=== PATIENT | female | born 1990 | race Caucasian/White ===

== ENCOUNTER → 2021-10-27 | Outpatient (CLI) | payer BC ==
--- NOTE | 2021-10-27 10:31 | CA ---
Transthoracic Echo Report Name: Mikhail August Age: 31 Gender: F : 1990 Exam Date: 10/27/2021 08:31 Exam Location: [facility] Ht (in): 69 Wt (lb): 190 Ordering Physician: Maksim Marie DO Attending/Referring Phys: Flower Ramsey [facility] Director Mara Sanchez RDCS Procedure CPT: Indications: R06.09 Dyspnea I49.3 Cardiac Hx: Technical Quality: Contrast 1: Total Dose (mL): Contrast 2: Total Dose (mL): MEASUREMENTS (Male / Female) Normal Values 2D ECHO LV Diastolic Diameter PLAX 4.1 cm 4.2 - 5.9 / 3.9 - 5.3 cm LV Systolic Diameter PLAX 2.1 cm IVS Diastolic Thickness 1.0 cm 0.6 - 1.0 / 0.6 - 0.9 cm LVPW Diastolic Thickness 1.2 cm 0.6 - 1.0 / 0.6 - 0.9 cm LV Relative Wall Thickness 0.6 RV Internal Dim ED PLAX 3.0 cm LA Volume 54.1 cm??? 18 - 58 / 22 - 52 cm??? M-MODE Aortic Root Diameter MM 2.3 cm LA Systolic Diameter MM 4.2 cm LA Ao Ratio MM 1.8 AV Cusp Separation MM 2.1 cm DOPPLER AV Peak Velocity 168.3 cm/s AV Peak Gradient 11.3 mmHg MV Area PHT 4.7 cm??? Mitral E Point Velocity 97.2 cm/s Mitral A Point Velocity 64.8 cm/s Mitral E to A Ratio 1.5 MV Deceleration Time 160.3 ms TR Peak Velocity 242.1 cm/s TR Peak Gradient 23.4 mmHg Right Ventricular Systolic Press 28.4 mmHg FINDINGS Left Ventricle Borderline Left ventricular wall thickness. Normal left ventricular diastolic filling pattern. Left ventricular cavity size normal. Normal left ventricular systolic function with no obvious regional wall motion abnormalities. Left ventricular ejection fraction is estimated at 55-60 %. Right Ventricle Normal right ventricular size and function. Right ventricular systolic pressure within normal limits. Right Atrium Normal right atrial size. Left Atrium Mildly increased left atrial volume. No evidence for an atrial septal defect. Mitral Valve Structurally normal mitral valve. No mitral stenosis. Mild mitral regurgitation. Aortic Valve Trileaflet aortic valve. No aortic valve stenosis or regurgitation. Tricuspid Valve Structurally normal tricuspid valve. No tricuspid stenosis. Mild tricuspid regurgitation. Pulmonic Valve Structurally normal pulmonic valve. Trace pulmonic regurgitation. Pericardium No pericardial effusion. Aorta Normal size aortic root and proximal ascending aorta. CONCLUSIONS #1. Normal ventricular left ankle size and function with borderline hypertrophy. #2. Mildly increased left atrial size. #3. Normal valvular excursion and function Previewed by: Dr. Angel Penn MD (Electronically Signed) Final Date: 27 October 2021 10:30
== END | disposition home or self-care (01) ==
LOC: RADECHMAIN 08:18
PROVIDERS: ATTEND Family Medicine
DX: I08.8 Other rheumatic multiple valve diseases (principal)
CPT/HCPCS: 93306

== ENCOUNTER → 2021-10-28 | Outpatient (CLI) | payer BC ==
--- NOTE | 2021-11-15 10:03 | HM ---
Holter monitor shows sinus mechanism with intermittent PVCs, of one single morphology No nonsustained ventricular tachycardia Sinus tachycardia when patient was on the treadmill At that time, no PVCs documented MTDD
== END | disposition home or self-care (01) ==
LOC: RADECHMAIN 07:22
PROVIDERS: ATTEND Family Medicine
DX: I47.2 Ventricular tachycardia (principal)
CPT/HCPCS: 93225; 93226

== ENCOUNTER → 2022-01-17 | Outpatient (CLI) | payer BC ==
--- NOTE | 2022-01-17 15:41 | US ---
EXAMINATION TYPE: US thyroid st tissue head/neck DATE OF EXAM: 01/17/2022 COMPARISON: NONE CLINICAL HISTORY: R59.0 ENLARGED LYMPH NODES. Cervical lymphadenopathy. Scanned bilateral neck. -Hypoechoic area with hyperechoic center seen within the right neck: 3.0 x 2.2 x 0.9 cm. -Hypoechoic area seen right neck within the jaw area: 0.7 x 0.6 x 0.5 cm. ??Possibly within submandib ular gland. Hypoechoic area with hyperechoic center seen within the left neck: 1.6 x 0.9 x 0.3 cm. IMPRESSION: 1. Bilateral neck lymphadenopathy. Question a small 7 mm right submandibular gland nodule. Recommend follow-up CT scan of the soft tissue neck
== END | disposition home or self-care (01) ==
LOC: RADECHMAIN 12:01
PROVIDERS: ATTEND Family Medicine
DX: R59.0 Localized enlarged lymph nodes (principal); R00.2 Palpitations
CPT/HCPCS: 76536; 93270

== ENCOUNTER 2022-02-17 09:09 | Emergency (ER) | payer BC ==
[2022-02-17 09:30] VITALS: RESP 16
[2022-02-17] MEDS ORDERED: SODIUM CHLORIDE 0.9% 1,000 ML IV STA (09:35)
--- NOTE | 2022-02-17 09:40 | ED ---
Nausea/Vomiting/Diarrhea HPI - General Chief complaint: Nausea/Vomiting/Diarrhea Stated complaint: Abd pain Time Seen by Provider: 02/17/22 09:21 Source: patient, RN notes reviewed, old records reviewed Mode of arrival: ambulatory Limitations: no limitations - History of Present Illness Initial comments: 32-year-old female presents to the emergency room with complaints of diarrhea for the past 2 days. She describes it as yellow and watery in color. She has lost her appetite, denies any nausea or vomiting. She states her doctor did tell her she had elevated liver enzymes and she has been changing her diet. She has not had her labs rechecked. She states that she just started her menses today. Denies any fevers. Does have a history of asthma MD complaint: diarrhea, abdominal pain -: days(s) (2) Description of Diarrhea: water (Yellow) Associated Abdominal Pain: Yes Location: diffuse Severity scale (1-10): 4 Quality: cramping Consistency: intermittent Associated Symptoms: loss of appetite - Related Data Home Medications Medication Instructions Recorded Confirmed Ibuprofen [Motrin] 600 mg PO Q8HR PRN 01/20/16 01/20/16 Multivitamins, Thera [Multivitamin] 1 tab PO HS 01/20/16 01/20/16 Previous Rx's Medication Instructions Recorded Cephalexin [Keflex] 500 mg PO BID 7 Days #14 cap 02/17/22 Allergies Allergy/AdvReac Type Severity Reaction Status Date / Time ethinyl estradiol Allergy Cough Verified 02/17/22 09:17 [From Seasonale contraceptive] levonorgestrel Allergy Cough Verified 02/17/22 09:17 [From Seasonale contraceptive] Review of Systems ROS Statement: Those systems with pertinent positive or pertinent negative responses have been documented in the HPI. ROS Other: All systems not noted in ROS Statement are negative. Past Medical History Past Medical History: Asthma, Thyroid Disorder History of Any Multi-Drug Resistant Organisms: None Reported Additional Past Surgical History / Comment(s): 12/31/15 Past Psychological History: Anxiety Smoking Status: Never smoker Past Alcohol Use History: Occasional Past Drug Use History: Marijuana General Exam Limitations: no limitations General appearance: alert, in no apparent distress Head exam: Present: atraumatic Eye exam: Absent: scleral icterus, conjunctival injection, periorbital swelling ENT exam: Present: mucous membranes moist Respiratory exam: Present: normal lung sounds bilaterally. Absent: respiratory distress, wheezes, rales, rhonchi, stridor, chest wall tenderness, accessory muscle use Cardiovascular Exam: Present: regular rate GI/Abdominal exam: Present: soft, normal bowel sounds. Absent: distended, tenderness, guarding, rebound, rigid Extremities exam: Present: normal inspection, normal capillary refill. Absent: pedal edema Back exam: Present: normal inspection, full ROM. Absent: tenderness, CVA tenderness (R), CVA tenderness (L), rash noted Neurological exam: Present: alert, oriented X3 Psychiatric exam: Present: normal affect, normal mood Skin exam: Present: warm, dry, normal color. Absent: cyanosis, diaphoretic, petechiae, pallor Course Vital Signs 02/17/22 02/17/22 02/17/22 09:14 09:28 10:47 Temperature 97.9 F 98.1 F 97.8 F Pulse Rate 63 64 60 Respiratory 20 16 16 Rate Blood Pressure 123/77 145/93 143/88 O2 Sat by Pulse 100 97 98 Oximetry 02/17/22 11:19 Temperature 98 F Pulse Rate 62 Respiratory 16 Rate Blood Pressure 129/80 O2 Sat by Pulse 100 Oximetry Medical Decision Making - Medical Decision Making Patient presents with lower abdominal pain with diarrhea for the past 3 days. Urinalysis shows large blood with greater than 182 white blood cells, rare bacteria. CBC and electrolytes unremarkable. Liver enzymes are normal. Patient was treated for urinary tract infection. test negative. Directed to increase her fluid intake and follow-up with her primary care doctor. Case discussed with Dr. Leigh - Lab Data Result diagrams: 02/17/22 09:51 02/17/22 09:51 Lab Results 02/17/22 02/17/22 02/17/22 Range/Units 09:51 09:51 09:51 WBC 10.3 (3.8-10.6) k/uL RBC 4.71 (3.80-5.40) m/uL Hgb 14.4 (11.4-16.0) gm/dL Hct 43.0 (34.0-46.0) % MCV 91.2 (80.0-100.0) fL MCH 30.7 (25.0-35.0) pg MCHC 33.6 (31.0-37.0) g/dL RDW 12.3 (11.5-15.5) % Plt Count 186 (150-450) k/uL MPV 10.2 Neutrophils % 77 % Lymphocytes % 12 % Monocytes % 6 % Eosinophils % 2 % Basophils % 0 % Neutrophils # 8.0 H (1.3-7.7) k/uL Lymphocytes # 1.3 (1.0-4.8) k/uL Monocytes # 0.6 (0-1.0) k/uL Eosinophils # 0.2 (0-0.7) k/uL Basophils # 0.0 (0-0.2) k/uL Sodium (137-145) mmol/L Potassium (3.5-5.1) mmol/L Chloride (98-107) mmol/L Carbon Dioxide (22-30) mmol/L Anion Gap mmol/L BUN (7-17) mg/dL Creatinine (0.52-1.04) mg/dL Est GFR (CKD-EPI)AfAm (>60 ml/min/1.73 sqM) Est GFR (CKD-EPI)NonAf (>60 ml/min/1.73 sqM) Glucose (74-99) mg/dL Calcium (8.4-10.2) mg/dL Total Bilirubin (0.2-1.3) mg/dL AST (14-36) U/L ALT (4-34) U/L Alkaline Phosphatase (38-126) U/L Total Protein (6.3-8.2) g/dL Albumin (3.5-5.0) g/dL Amylase (30-110) U/L Lipase (23-300) U/L Urine Color Red Urine Appearance Turbid H (Clear) Urine pH 5.5 (5.0-8.0) Ur Specific [place] 1.020 (1.001-1.035) Urine Protein 2+ H (Negative) Urine Glucose (UA) Negative (Negative) Urine Ketones 1+ H (Negative) Urine Blood Large H (Negative) Urine Nitrite Negative (Negative) Urine Bilirubin Negative (Negative) Urine Urobilinogen <2.0 (<2.0) mg/dL Ur Leukocyte Esterase Large H (Negative) Urine RBC >182 H (0-5) /hpf Urine WBC >182 H (0-5) /hpf Ur Squamous Epith Cells 12 H (0-4) /hpf Amorphous Sediment Rare H (None) /hpf Urine Bacteria Rare H (None) /hpf Urine Mucus Many H (None) /hpf Urine HCG, Qual Not Detected (Not Detectd) 02/17/22 Range/Units 09:51 WBC (3.8-10.6) k/uL RBC (3.80-5.40) m/uL Hgb (11.4-16.0) gm/dL Hct (34.0-46.0) % MCV (80.0-100.0) fL MCH (25.0-35.0) pg MCHC (31.0-37.0) g/dL RDW (11.5-15.5) % Plt Count (150-450) k/uL MPV Neutrophils % % Lymphocytes % % Monocytes % % Eosinophils % % Basophils % % Neutrophils # (1.3-7.7) k/uL Lymphocytes # (1.0-4.8) k/uL Monocytes # (0-1.0) k/uL Eosinophils # (0-0.7) k/uL Basophils # (0-0.2) k/uL Sodium 140 (137-145) mmol/L Potassium 3.5 (3.5-5.1) mmol/L Chloride 101 (98-107) mmol/L Carbon Dioxide 25 (22-30) mmol/L Anion Gap 14 mmol/L BUN 9 (7-17) mg/dL Creatinine 0.96 (0.52-1.04) mg/dL Est GFR (CKD-EPI)AfAm >90 (>60 ml/min/1.73 sqM) Est GFR (CKD-EPI)NonAf 80 (>60 ml/min/1.73 sqM) Glucose 98 (74-99) mg/dL Calcium 9.0 (8.4-10.2) mg/dL Total Bilirubin 0.9 (0.2-1.3) mg/dL AST 29 (14-36) U/L ALT 26 (4-34) U/L Alkaline Phosphatase 71 (38-126) U/L Total Protein 8.0 (6.3-8.2) g/dL Albumin 5.1 H (3.5-5.0) g/dL Amylase 53 (30-110) U/L Lipase 33 (23-300) U/L Urine Color Urine Appearance (Clear) Urine pH (5.0-8.0) Ur Specific [place] (1.001-1.035) Urine Protein (Negative) Urine Glucose (UA) (Negative) Urine Ketones (Negative) Urine Blood (Negative) Urine Nitrite (Negative) Urine Bilirubin (Negative) Urine Urobilinogen (<2.0) mg/dL Ur Leukocyte Esterase (Negative) Urine RBC (0-5) /hpf Urine WBC (0-5) /hpf Ur Squamous Epith Cells (0-4) /hpf Amorphous Sediment (None) /hpf Urine Bacteria (None) /hpf Urine Mucus (None) /hpf Urine HCG, Qual (Not Detectd) Disposition Clinical Impression: UTI (urinary tract infection) Disposition: HOME SELF-CARE Condition: Good Instructions (If sedation given, give patient instructions): Urinary Tract Infection in Women (ED) Additional Instructions: Take antibiotics as prescribed, increase your fluid intake. Tylenol and Motrin as needed for any discomfort. Follow-up with the primary care doctor next week. Return to the emergency room with any new or concerning symptoms Prescriptions: Cephalexin [Keflex] 500 mg PO BID 7 Days #14 cap Is patient prescribed a controlled substance at d/c from ED?: No Referrals: Maksim Marie DO [Primary Care Provider] - 1-2 days Time of Disposition: 11:13
[2022-02-17 10:02] LABS: Basophils % (A) 0 %; Eosinophils # (A) 0.2 k/uL (0-0.7); Eosinophils % (A) 2 %; HGB 14.4 gm/dL (11.4-16.0); Lymphocytes # (A) 1.3 k/uL (1.0-4.8); Lymphocytes % (A) 12 %; MCH 30.7 pg (25.0-35.0); MCHC 33.6 g/dL (31.0-37.0); MCV 91.2 fL (80.0-100.0); Mean Platelet Volume 10.2; Monocytes # (A) 0.6 k/uL (0-1.0); Monocytes % (A) 6 %; Neutrophils % (A) 77 %; Platelet Count 186 k/uL (150-450); RBC 4.71 m/uL (3.80-5.40); RDW 12.3 % (11.5-15.5); WBC 10.3 k/uL (3.8-10.6)
[2022-02-17 10:08] LABS: Amorphous Sediment,Urine Rare /hpf; Appearance,Urine Turbid (Clear); Bacteria,Urine Rare /hpf; Bilirubin,Urine Negative (Negative); Blood,Urine Large (Negative); Color,Urine Red; Glucose,Urine (UA) Negative (Negative); Ketones,Urine 1+ (Negative); Leukocyte Esterase,Urine Large (Negative); Mucus,Urine Many /hpf; Nitrite,Urine Negative (Negative); PH, Urine 5.5 (5.0-8.0); Protein,Urine 2+ (Negative); RBC,Urine >182 /hpf (0-5); Squamous Epithelial Cell,Urine 12 /hpf (0-4); Urobilinogen,Urine <2.0 mg/dL (<2.0); WBC,Urine >182 /hpf (0-5)
[2022-02-17 10:11] LABS: ALT 26 U/L (4-34); AST 29 U/L (14-36); African American GFR (CKD) >90 (>60 ml/min/1.73 sqM); Albumin 5.1 g/dL (3.5-5.0); Alkaline Phosphatase 71 U/L (38-126); Amylase 53 U/L (30-110); Anion Gap 14 mmol/L; Blood Urea Nitrogen 9 mg/dL (7-17); Carbon Dioxide 25 mmol/L (22-30); Chloride 101 mmol/L (98-107); Glucose 98 mg/dL (74-99); Lipase 33 U/L (23-300); Non-African American GFR(CKD) 80 (>60 ml/min/1.73 sqM); Potassium 3.5 mmol/L (3.5-5.1); Sodium 140 mmol/L (137-145); Total Bilirubin 0.9 mg/dL (0.2-1.3)
[2022-02-17] MEDS ORDERED: cefTRIAXone IN SWFI 1,000 MG/10 ML SYRINGE IVP STA (10:53)
[2022-02-17 11:21] VITALS: BP 129/80; PULSE 62; TEMP 98
== END 2022-02-17 11:20 | disposition home or self-care (01) ==
LOC: EC 09:09
DX: N39.0 Urinary tract infection, site not specified (principal); J45.909 Unspecified asthma, uncomplicated; E07.9 Disorder of thyroid, unspecified; Z88.0 Allergy status to penicillin
CPT/HCPCS: 36415; 80053; 82150; 83690; 85025; 81001; 81025; 87086; 96374; 96361; 99284; J0696

== ENCOUNTER 2022-03-15 08:50 | Inpatient (IN) | payer BC, OTHER ==
[2022-03-15] MEDS ORDERED: SODIUM CHLORIDE 0.9% 1,000 ML IV STA (09:26)
[2022-03-15 09:49] LABS: Basophils # (A) 0.1 k/uL (0-0.2); Basophils % (A) 1 %; Eosinophils # (A) 0.2 k/uL (0-0.7); Eosinophils % (A) 2 %; HCT 44.2 % (34.0-46.0); Lymphocytes # (A) 2.2 k/uL (1.0-4.8); Lymphocytes % (A) 25 %; MCH 31.3 pg (25.0-35.0); MCV 92.1 fL (80.0-100.0); Mean Platelet Volume 10.5; Monocytes # (A) 0.5 k/uL (0-1.0); Monocytes % (A) 5 %; Neutrophils # (A) 5.7 k/uL (1.3-7.7); Neutrophils % (A) 65 %; Platelet Count 196 k/uL (150-450); RDW 12.3 % (11.5-15.5); WBC 8.8 k/uL (3.8-10.6)
[2022-03-15 09:50] LABS: Appearance,Urine Clear (Clear); Bilirubin,Urine Negative (Negative); Blood,Urine Trace (Negative); Color,Urine Light Yellow; Glucose,Urine (UA) Negative (Negative); Ketones,Urine Negative (Negative); Leukocyte Esterase,Urine Negative (Negative); Mucus,Urine Occasional /hpf; Nitrite,Urine Negative (Negative); PH, Urine 5.5 (5.0-8.0); Protein,Urine Negative (Negative); RBC,Urine <1 /hpf (0-5); Specific Gravity,Urine 1.006 (1.001-1.035); Squamous Epithelial Cell,Urine 1 /hpf (0-4); Urobilinogen,Urine <2.0 mg/dL (<2.0); WBC,Urine 1 /hpf (0-5)
[2022-03-15 09:59] LABS: Partial Thromboplastin Time 26.7 sec (22.0-30.0); Prothrombin Time 10.8 sec (9.0-12.0)
[2022-03-15 10:00] LABS: ALT 28 U/L (4-34); AST 28 U/L (14-36); African American GFR (CKD) >90 (>60 ml/min/1.73 sqM); Albumin 4.6 g/dL (3.5-5.0); Alkaline Phosphatase 67 U/L (38-126); Anion Gap 13 mmol/L; Blood Urea Nitrogen 13 mg/dL (7-17); Carbon Dioxide 23 mmol/L (22-30); Chloride 105 mmol/L (98-107); Glucose 82 mg/dL (74-99); Non-African American GFR(CKD) 90 (>60 ml/min/1.73 sqM); Potassium 3.8 mmol/L (3.5-5.1); Sodium 141 mmol/L (137-145); Total Bilirubin 0.8 mg/dL (0.2-1.3); Total Protein 7.6 g/dL (6.3-8.2)
--- NOTE | 2022-03-15 11:29 | P.HPIM ---
History of Present Illness Patient is a 32-year-old female came in with compensative lightheadedness patient lightheadedness is on and off usually happens with the prolonged standing patient had the symptoms for long time use to have chest pain when she was in her teenage years. Patient was started on levothyroxine as an outpatient because of the symptoms believing that hypothyroidism is causing these symptoms. Patient still has some lightheadedness at this time heart rate is 60 patient doesn't have any heart block, not bradycardic but does have frequent PVCs. Patient did see tool design drafter for this reason and patient had Holter monitor twice as of which are not known to her at this time. Patient was told she has a defect in the septum details that'll not known although echocardiogram at this facility did not show either VSD or ASD or any other septal defect. This echo was done in November 2021. REVIEW OF SYSTEMS: CONSTITUTIONAL: No fever, no malaise, no fatigue. HEENT: No recent visual problems or hearing problems. Denied any sore throat. CARDIOVASCULAR: No chest pain, orthopnea, PND, no palpitations, no syncope. PULMONARY: No shortness of breath, no cough, no hemoptysis. GASTROINTESTINAL: No diarrhea, no nausea, no vomiting, no abdominal pain. NEUROLOGICAL: No headaches, no weakness, no numbness. HEMATOLOGICAL: Denies any bleeding or petechiae. GENITOURINARY: Denies any burning micturition, frequency, or urgency. MUSCULOSKELETAL/RHEUMATOLOGICAL: Denies any joint pain, swelling, or any muscle pain. ENDOCRINE: Denies any polyuria or polydipsia. The rest of the 14-point review of systems is negative. PHYSICAL EXAMINATION: GENERAL: The patient is alert and oriented x3, not in any acute distress. Well developed, well nourished. HEENT: Pupils are round and equally reacting to light. EOMI. No scleral icterus. No conjunctival pallor. Normocephalic, atraumatic. No pharyngeal erythema. No thyromegaly. CARDIOVASCULAR: S1 and S2 present. No murmurs, rubs, or gallops. PULMONARY: Chest is clear to auscultation, no wheezing or crackles. ABDOMEN: Soft, nontender, nondistended, normoactive bowel sounds. No palpable organomegaly. MUSCULOSKELETAL: No joint swelling or deformity. EXTREMITIES: No cyanosis, clubbing, or pedal edema. NEUROLOGICAL: Gross neurological examination did not reveal any focal deficits. SKIN: No rashes. Assessment and plan -Dizziness,: Etiology is not clear cardiology will evaluate the patient patient will be monitored overnight here. -History of hyperthyroidism TSH is within normal limits patient will be resumed on her same medication -Multiple seasonal ALLERGIES for which patient is on fexofenadine which can cause a heart rhythm problems. For now this will be resumed along with the her steroid inhalers and Singulair. -Anxiety disorder for which patient is on sertraline which will be continued DVT prophylaxis: Ambulation Past Medical History Past Medical History: Asthma, Thyroid Disorder History of Any Multi-Drug Resistant Organisms: None Reported Additional Past Surgical History / Comment(s): 12/31/15 Past Psychological History: Anxiety Smoking Status: Never smoker Past Alcohol Use History: Occasional Past Drug Use History: Marijuana Medications and Allergies Home Medications Medication Instructions Recorded Confirmed Type Fexofenadine HCl [Robyn Allergy] 180 mg PO DAILY@1400 03/15/22 03/15/22 History Fluticasone Nasal [place] [Flonase 1 spr EA NOSTRIL BID 03/15/22 03/15/22 History Nasal [place]] Fluticasone Propion/Salmeterol 1 puff INHALATION RT-BID 03/15/22 03/15/22 History [[place] 100-50 Inhub] Levothyroxine Sodium [Synthroid] 50 mcg PO AC-BRKFST 03/15/22 03/15/22 History Montelukast [Singulair] 10 mg PO DAILY@1400 03/15/22 03/15/22 History Sertraline HCl [Zoloft] 50 mg PO DAILY@1400 03/15/22 03/15/22 History Allergies Allergy/AdvReac Type Severity Reaction Status Date / Time ethinyl estradiol AdvReac Cough Verified 03/15/22 11:05 [From Seasonale contraceptive] levonorgestrel AdvReac Cough Verified 03/15/22 11:05 [From Seasonale contraceptive] Physical Exam Vitals: Vital Signs Temp Pulse Resp BP Pulse Ox 03/15/22 09:49 64 16 145/85 96 03/15/22 08:58 97.7 F 40 L 18 156/75 99 Intake and Output 03/14/22 03/15/22 03/15/22 22:59 06:59 14:59 Other: Weight 79.832 kg Results CBC & Chem 7: 03/15/22 09:38 03/15/22 09:38 Labs: Abnormal Lab Results - Last 24 Hours (Table) 03/15/22 Range/Units 09:38 Urine Blood Trace H (Negative) Urine Mucus Occasional H (None) /hpf
[2022-03-15] MEDS ORDERED: NALOXONE 0.4 MG/ML 1 ML VIAL IV PRN (11:41)
[2022-03-15] MEDS ORDERED: ACETAMINOPHEN TAB 325 MG TAB PO PRN (11:41)
--- NOTE | 2022-03-15 11:44 | ED ---
Arrhythmia/Palpitations HPI - General Chief Complaint: Arrhythmia/Palpitations Stated Complaint: lightheaded, low heart rate Time Seen by Provider: 03/15/22 09:08 Source: patient, RN notes reviewed Mode of arrival: ambulatory Limitations: no limitations - History of Present Illness Initial Comments: 32-year-old female presents emergency Department chief complaint of dizziness, palpitations, low heart rate. Patient states that she's been currently been worked up by cardiology for that she is scheduled for a stress that she has had a Holter monitor and echocardiogram. Patient states she knows her blood pressure has been off, heart racing very low which she's been having episodes where she is feeling like she cannot pass out, very dizzy lightheaded. She states is worse with movement. Patient states she has CT been sent home from work because of the symptoms. 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 - Related Data Home Medications Medication Instructions Recorded Confirmed Fexofenadine HCl [Robyn Allergy] 180 mg PO DAILY@1400 03/15/22 03/15/22 Fluticasone Nasal [place] [Flonase 1 spr EA NOSTRIL BID 03/15/22 03/15/22 Nasal [place]] Fluticasone Propion/Salmeterol 1 puff INHALATION RT-BID 03/15/22 03/15/22 [[place]ela 100-50 Inhub] Levothyroxine Sodium [Synthroid] 50 mcg PO AC-BRKFST 03/15/22 03/15/22 Montelukast [Singulair] 10 mg PO DAILY@1400 03/15/22 03/15/22 Sertraline HCl [Zoloft] 50 mg PO DAILY@1400 03/15/22 03/15/22 Allergies Allergy/AdvReac Type Severity Reaction Status Date / Time ethinyl estradiol AdvReac Cough Verified 03/15/22 11:05 [From Seasonale contraceptive] levonorgestrel AdvReac Cough Verified 03/15/22 11:05 [From Seasonale contraceptive] Review of Systems ROS Statement: Those systems with pertinent positive or pertinent negative responses have been documented in the HPI. ROS Other: All systems not noted in ROS Statement are negative. Past Medical History Past Medical History: Asthma, Thyroid Disorder History of Any Multi-Drug Resistant Organisms: None Reported Additional Past Surgical History / Comment(s): 12/31/15 Past Psychological History: Anxiety Smoking Status: Never smoker Past Alcohol Use History: Occasional Past Drug Use History: Marijuana General Exam Limitations: no limitations General appearance: alert, in no apparent distress Head exam: Present: atraumatic, normocephalic, normal inspection Eye exam: Present: normal appearance, PERRL, EOMI. Absent: scleral icterus, conjunctival injection, periorbital swelling ENT exam: Present: normal exam, normal oropharynx, mucous membranes moist Neck exam: Present: normal inspection, full ROM. Absent: tenderness, meningismus, lymphadenopathy Respiratory exam: Present: normal lung sounds bilaterally. Absent: respiratory distress, wheezes, rales, rhonchi, stridor Cardiovascular Exam: Present: regular rate, normal rhythm, normal heart sounds. Absent: systolic murmur, diastolic murmur, rubs, gallop, clicks GI/Abdominal exam: Present: soft, normal bowel sounds. Absent: distended, tenderness, guarding, rebound, rigid Course Vital Signs 03/15/22 03/15/22 08:58 09:49 Temperature 97.7 F Pulse Rate 40 L 64 Respiratory 18 16 Rate Blood Pressure 156/75 145/85 O2 Sat by Pulse 99 96 Oximetry Medical Decision Making - Medical Decision Making 32-year-old presented for near-syncope dizziness. Cardiac episodes. Patient's having multiple frequent PVCs causing arrhythmia that she is symptomatic from. Patient admitted for cardiology evaluation. - Lab Data Result diagrams: 03/15/22 09:38 03/15/22 09:38 Lab Results 03/15/22 03/15/22 03/15/22 Range/Units 09:38 09:38 09:38 WBC 8.8 (3.8-10.6) k/uL RBC 4.80 (3.80-5.40) m/uL Hgb 15.0 (11.4-16.0) gm/dL Hct 44.2 (34.0-46.0) % MCV 92.1 (80.0-100.0) fL MCH 31.3 (25.0-35.0) pg MCHC 34.0 (31.0-37.0) g/dL RDW 12.3 (11.5-15.5) % Plt Count 196 (150-450) k/uL MPV 10.5 Neutrophils % 65 % Lymphocytes % 25 % Monocytes % 5 % Eosinophils % 2 % Basophils % 1 % Neutrophils # 5.7 (1.3-7.7) k/uL Lymphocytes # 2.2 (1.0-4.8) k/uL Monocytes # 0.5 (0-1.0) k/uL Eosinophils # 0.2 (0-0.7) k/uL Basophils # 0.1 (0-0.2) k/uL PT 10.8 (9.0-12.0) sec INR 1.0 (<1.2) APTT 26.7 (22.0-30.0) sec Sodium (137-145) mmol/L Potassium (3.5-5.1) mmol/L Chloride (98-107) mmol/L Carbon Dioxide (22-30) mmol/L Anion Gap mmol/L BUN (7-17) mg/dL Creatinine (0.52-1.04) mg/dL Est GFR (CKD-EPI)AfAm (>60 ml/min/1.73 sqM) Est GFR (CKD-EPI)NonAf (>60 ml/min/1.73 sqM) Glucose (74-99) mg/dL Calcium (8.4-10.2) mg/dL Magnesium (1.6-2.3) mg/dL Total Bilirubin (0.2-1.3) mg/dL AST (14-36) U/L ALT (4-34) U/L Alkaline Phosphatase (38-126) U/L Troponin I (0.000-0.034) ng/mL Total Protein (6.3-8.2) g/dL Albumin (3.5-5.0) g/dL TSH (0.465-4.680) mIU/L Urine Color Light Yellow Urine Appearance Clear (Clear) Urine pH 5.5 (5.0-8.0) Ur Specific [place] 1.006 (1.001-1.035) Urine Protein Negative (Negative) Urine Glucose (UA) Negative (Negative) Urine Ketones Negative (Negative) Urine Blood Trace H (Negative) Urine Nitrite Negative (Negative) Urine Bilirubin Negative (Negative) Urine Urobilinogen <2.0 (<2.0) mg/dL Ur Leukocyte Esterase Negative (Negative) Urine RBC <1 (0-5) /hpf Urine WBC 1 (0-5) /hpf Ur Squamous Epith Cells 1 (0-4) /hpf Urine Mucus Occasional H (None) /hpf Urine HCG, Qual (Not Detectd) 03/15/22 03/15/22 03/15/22 Range/Units 09:38 09:38 09:38 WBC (3.8-10.6) k/uL RBC (3.80-5.40) m/uL Hgb (11.4-16.0) gm/dL Hct (34.0-46.0) % MCV (80.0-100.0) fL MCH (25.0-35.0) pg MCHC (31.0-37.0) g/dL RDW (11.5-15.5) % Plt Count (150-450) k/uL MPV Neutrophils % % Lymphocytes % % Monocytes % % Eosinophils % % Basophils % % Neutrophils # (1.3-7.7) k/uL Lymphocytes # (1.0-4.8) k/uL Monocytes # (0-1.0) k/uL Eosinophils # (0-0.7) k/uL Basophils # (0-0.2) k/uL PT (9.0-12.0) sec INR (<1.2) APTT (22.0-30.0) sec Sodium 141 (137-145) mmol/L Potassium 3.8 (3.5-5.1) mmol/L Chloride 105 (98-107) mmol/L Carbon Dioxide 23 (22-30) mmol/L Anion Gap 13 mmol/L BUN 13 (7-17) mg/dL Creatinine 0.87 (0.52-1.04) mg/dL Est GFR (CKD-EPI)AfAm >90 (>60 ml/min/1.73 sqM) Est GFR (CKD-EPI)NonAf 90 (>60 ml/min/1.73 sqM) Glucose 82 (74-99) mg/dL Calcium 9.0 (8.4-10.2) mg/dL Magnesium 2.0 (1.6-2.3) mg/dL Total Bilirubin 0.8 (0.2-1.3) mg/dL AST 28 (14-36) U/L ALT 28 (4-34) U/L Alkaline Phosphatase 67 (38-126) U/L Troponin I <0.012 (0.000-0.034) ng/mL Total Protein 7.6 (6.3-8.2) g/dL Albumin 4.6 (3.5-5.0) g/dL TSH 2.040 (0.465-4.680) mIU/L Urine Color Urine Appearance (Clear) Urine pH (5.0-8.0) Ur Specific [place] (1.001-1.035) Urine Protein (Negative) Urine Glucose (UA) (Negative) Urine Ketones (Negative) Urine Blood (Negative) Urine Nitrite (Negative) Urine Bilirubin (Negative) Urine Urobilinogen (<2.0) mg/dL Ur Leukocyte Esterase (Negative) Urine RBC (0-5) /hpf Urine WBC (0-5) /hpf Ur Squamous Epith Cells (0-4) /hpf Urine Mucus (None) /hpf Urine HCG, Qual Not Detected (Not Detectd) Disposition Clinical Impression: Arrhythmia, Near syncope Disposition: ADMITTED IP TO THIS HOSP Referrals: Maksim Marie DO [Primary Care Provider] - 1-2 days Time of Disposition: 11:21
[2022-03-15] MEDS: SODIUM CHLORIDE 0.9% 1,000 ML IV SCH (12:28)
[2022-03-15] MEDS: SERTRALINE 50 MG TAB PO SCH (13:08)
[2022-03-15] MEDS: LORATADINE 10 MG TAB PO SCH (13:08)
[2022-03-15] MEDS: MONTELUKAST 10 MG TAB PO SCH (13:08)
[2022-03-15] MEDS: FLUTICASONE 50MCG/SPRAY NASAL 16GM EA NOSTRIL SCH ×2 (13:08→19:46)
--- NOTE | 2022-03-15 13:25 | P.CRDCN ---
History of Present Illness History of present illness: HISTORY OF PRESENTING ILLNESS This is a pleasant 32-year-old female past medical history significant for hypothyroidism and asthma. She follows in the office with Dr. Perry. We have been asked to see in consultation for symptomatic arrhythmia. Patient presents emergency department with complaints of episode of lightheadedness, hypertension at work yesterday. 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 States she had symptoms of lightheadedness, headache, and states she was not feeling right. She checked her BP and was hypertensive 153/106 and 146/106. She states she went home early. She states she continued to be symptomatic, called her sumatra opener office and recommended patient be evaluated in the ER. She has been having exertional symptoms of chest tightness, dizziness, presyncope since she was 17/18 years old. She was diagnosed with hypothyroidism, was started on Synthroid with improvement. She states she was diagnosed with frequent PVCs over the summer. She has been having blurry vision and lightheadedness when leaning forward and quick movements from lying to sitting up as well. Family history includes father and paternal grandfather with [place] with stenting, father in his 40s at the time, mother side with history of diabetes and hypertension. No known family history of arrhythmia She underwent an event monitor which revealed frequent PVCs this month. She also underwent echocardiogram 10/2021 which revealed an EF of 5560 percent, no significant wall motion abnormalities, mildly increased left atrial size. She was evaluated by Dr. Perry in the office, she is being considered for an ablation at [facility] and possible cardiac MRI as an outpatient. She also was scheduled for a stress test. DIAGNOSTICS * EKG reveals sinus rhythm, HR 65, frequent PVCs. * Telemetry tracings indicate sinus rhythm HR 60s, frequent PVCs. * Echocardiogram 10/2021 revealed EF 5560 percent,new from all motion abnormalities, mildly increased left atrial size. * Laboratory reviewed, CBC unremarkable, sodium 141, potassium 3.8, BUN 13, syncope 0.8, magnesium 2.0, troponin negative * Current home medications include Zoloft, Singulair, Robyn, Synthroid 50mg daily, Flonase, Wixela REVIEW OF SYSTEMS At the time of my exam: CONSTITUTIONAL: Denies fever or chills. CARDIOVASCULAR: Denies chest pain, shortness of breath, orthopnea, PND or palpitations. RESPIRATORY: Denies cough. GASTROINTESTINAL: Denies abdominal pain, diarrhea, constipation, nausea or vomiting. MUSCULOSKELETAL: Denies myalgias. NEUROLOGIC: Denies numbness, tingling, headacbe or weakness. ENDOCRINE: Denies fatigue, weight change, polydipsia or polyurina. GENITOURINARY: Denies burning, hematuria or urgency with micturation. HEMATOLOGIC: Denies history of anemia or bleeding. PHYSICAL EXAMINATION Blood pressure 136/86, heart rate 64, afebrile, saturations 99% on room air CONSTITUTIONAL: No apparent distress. HEENT: Head is normocephalic. Pupils are equal, round. Sclerae anicteric. Mucous membranes of the mouth are moist. No JVD. No carotid bruit. CHEST EXAMINATION: Lungs are clear to auscultation. No chest wall tenderness is noted on palpation or with deep breathing. HEART EXAMINATION: Regular rate and rhythm. S1, S2 heard. No murmurs, gallops or rub. ABDOMEN: Soft, nontender. Positive bowel sounds. EXTREMITIES: 2+ peripheral pulses, no lower extremity edema and no calf tenderness. NEUROLOGIC EXAMINATION: Patient is awake, alert and oriented x3. ASSESSMENT Frequent PVCs T wave inversion V1-V2 Episode of Lightheadedness, headache and hypertension Intermittent episodes of exertional chest discomfort History of asthma Hypothyroidism PLAN Obtain orthostatic vital signs Repeat Troponin Perform exercise stress test tomorrow Continue cardiac telemetry Consider cardiac MRI as an outpatient, consider diagnosis of ARVD Close follow up with Dr. Perry in the office, patient with possible cardiac ablation outpatient at [facility]. Further recommendations based on clinical course Nurse practitioner note has been reviewed by physician. Signing provider agrees with the documented findings, assessment, and plan of care. Past Medical History Past Medical History: Asthma, Thyroid Disorder History of Any Multi-Drug Resistant Organisms: None Reported Additional Past Surgical History / Comment(s): 12/31/15 Past Psychological History: Anxiety Smoking Status: Never smoker Past Alcohol Use History: Occasional Past Drug Use History: Marijuana Medications and Allergies Home Medications Medication Instructions Recorded Confirmed Type Fexofenadine HCl [Robyn Allergy] 180 mg PO DAILY@1400 03/15/22 03/15/22 History Fluticasone Nasal [place] [Flonase 1 spr EA NOSTRIL BID 03/15/22 03/15/22 History Nasal [place]] Fluticasone Propion/Salmeterol 1 puff INHALATION RT-BID 03/15/22 03/15/22 History [Wixela 100-50 Inhub] Levothyroxine Sodium [Synthroid] 50 mcg PO AC-BRKFST 03/15/22 03/15/22 History Montelukast [Singulair] 10 mg PO DAILY@1400 03/15/22 03/15/22 History Sertraline HCl [Zoloft] 50 mg PO DAILY@1400 03/15/22 03/15/22 History Allergies Allergy/AdvReac Type Severity Reaction Status Date / Time ethinyl estradiol AdvReac Cough Verified 03/15/22 11:05 [From Seasonale contraceptive] levonorgestrel AdvReac Cough Verified 03/15/22 11:05 [From Seasonale contraceptive] Physical Exam Vitals: Vital Signs Temp Pulse Resp BP Pulse Ox 03/15/22 12:30 64 14 136/86 99 03/15/22 09:49 64 16 145/85 96 03/15/22 08:58 97.7 F 40 L 18 156/75 99 Intake and Output 03/14/22 03/15/22 03/15/22 22:59 06:59 14:59 Other: Weight 79.832 kg Results 03/15/22 09:38 03/15/22 09:38 Cardiac Enzymes 03/15/22 03/15/22 Range/Units 09:38 09:38 AST 28 (14-36) U/L Troponin I <0.012 (0.000-0.034) ng/mL Coagulation 03/15/22 Range/Units 09:38 PT 10.8 (9.0-12.0) sec APTT 26.7 (22.0-30.0) sec CBC 03/15/22 Range/Units 09:38 WBC 8.8 (3.8-10.6) k/uL RBC 4.80 (3.80-5.40) m/uL Hgb 15.0 (11.4-16.0) gm/dL Hct 44.2 (34.0-46.0) % Plt Count 196 (150-450) k/uL Comprehensive Metabolic Panel 03/15/22 Range/Units 09:38 Sodium 141 (137-145) mmol/L Potassium 3.8 (3.5-5.1) mmol/L Chloride 105 (98-107) mmol/L Carbon Dioxide 23 (22-30) mmol/L BUN 13 (7-17) mg/dL Creatinine 0.87 (0.52-1.04) mg/dL Glucose 82 (74-99) mg/dL Calcium 9.0 (8.4-10.2) mg/dL AST 28 (14-36) U/L ALT 28 (4-34) U/L Alkaline Phosphatase 67 (38-126) U/L Total Protein 7.6 (6.3-8.2) g/dL Albumin 4.6 (3.5-5.0) g/dL Current Medications Generic Name Dose Route Start Last Admin Trade Name Freq PRN Reason Stop Dose Admin Acetaminophen 650 mg 03/15/22 11:41 Acetaminophen Tab 325 Mg Tab PO Q6HR PRN Mild Pain or Fever > 100.5 Budesonide/Formoterol Fumarate 2 puff 03/15/22 20:00 Symbicort 80-4.5 Mcg Inhaler INHALATION RT-BID [facility] Fluticasone Propionate 1 spray 03/15/22 11:30 Fluticasone 50mcg/[place]oman Nasal 16gm EA NOSTRIL BID LAURA Sodium Chloride 1,000 mls @ 75 mls/hr 03/15/22 11:45 03/15/22 12:28 Saline 0.9% IV 75 mls/hr .[id number] LAURA Administration Levothyroxine Sodium 50 mcg 03/16/22 07:30 Levothyroxine 50 Mcg Tab PO AC-BRKFST [facility] Loratadine 10 mg 03/15/22 14:00 Loratadine 10 Mg Tab PO DAILY@1400 LAURA Montelukast Sodium 10 mg 03/15/22 14:00 Montelukast 10 Mg Tab PO DAILY@1400 [facility] Naloxone HCl 0.2 mg 03/15/22 11:41 Naloxone 0.4 Mg/Ml 1 Ml Vial IV Q2M PRN Opioid Reversal Sertraline HCl 50 mg 03/15/22 14:00 Sertraline 50 Mg Tab PO DAILY@1400 [facility] Intake and Output 03/14/22 03/15/22 03/15/22 22:59 06:59 14:59 Other: Weight 79.832 kg Patient Weight 03/16/22 06:59 Weight 79.832 kg 03/15/22 09:38 03/15/22 09:38
[2022-03-15] MEDS: SYMBICORT 80-4.5 MCG INHALER INHALATION SCH (20:00)
[2022-03-16] MEDS: SODIUM CHLORIDE 0.9% 1,000 ML IV SCH ×2 (04:04→18:16)
[2022-03-16] MEDS ORDERED: LEVOTHYROXINE 50 MCG TAB PO SCH (07:30)
[2022-03-16] MEDS: SYMBICORT 80-4.5 MCG INHALER INHALATION SCH (07:41)
[2022-03-16] MEDS: FLUTICASONE 50MCG/SPRAY NASAL 16GM EA NOSTRIL SCH (08:26)
--- NOTE | 2022-03-16 10:42 | P.PN ---
Subjective This is a pleasant 32-year-old female past medical history significant for hypothyroidism and asthma. She follows in the office with Dr. Perry. We have been asked to see in consultation for symptomatic arrhythmia. Patient presents emergency department with complaints of episode of lightheadedness, hypertension at work yesterday. 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 States she had symptoms of lightheadedness, headache, and states she was not feeling right. She checked her BP and was hypertensive 153/106 and 146/106. She states she went home early. She states she continued to be symptomatic, called her clockmaker apprentice office and recommended patient be evaluated in the ER. She has been having exertional symptoms of chest tightness, dizziness, presyncope since she was [age] years old. She was diagnosed with hypothyroidism, was started on Synthroid with improvement. She states she was diagnosed with frequent PVCs over the summer. She has been having blurry vision and lightheadedness when leaning forward and quick movements from lying to sitting up as well. Family history includes father and paternal grandfather with [place] with stenting, father in his 40s at the time, mother side with history of diabetes and hypertension. No known family history of arrhythmia She underwent an event monitor which revealed frequent PVCs this month. She also underwent echocardiogram 10/2021 which revealed an EF of 5560 percent, no significant wall motion abnormalities, mildly increased left atrial size. She was evaluated by Dr. Perry in the office, she is being considered for an ablation at [facility] and possible cardiac MRI as an outpatient. She also was scheduled for a stress test. 03/16/2022 Patient seen and examined at bedside, sitting up in the bedside chair, no acute distress. She states her symptoms improved. She has no complaints. Continues to be in sinus rhythm heart rate in the 60s to 70s with frequent PVCs. She den ies any lightheadedness, dizziness, chest pain or palpitations. Orthostatic vital signs were negative PHYSICAL EXAMINATION Vitals reviewed CONSTITUTIONAL: No apparent distress. HEENT: Head is normocephalic. Neck supple No JVD. No carotid bruit. CHEST EXAMINATION: Lungs are clear to auscultation. No chest wall tenderness is noted on palpation or with deep breathing. HEART EXAMINATION: irregular rate secondary to PVCs and regular rhythm. S1, S2 heard. No murmurs, gallops or rub. ABDOMEN: Soft, nontender. Positive bowel sounds. EXTREMITIES: 2+ peripheral pulses, no lower extremity edema and no calf tenderness. NEUROLOGIC EXAMINATION: Patient is awake, alert and oriented x3. ASSESSMENT Frequent PVCs T wave inversion V1-V2 Episode of Lightheadedness, headache and hypertension Intermittent episodes of exertional chest discomfort History of asthma Hypothyroidism PLAN Acute coronary syndrome has ruled out, orthostatics negative Perform exercise stress test today Consider cardiac MRI as an outpatient, consider diagnosis of ARVD Close follow up with Dr. Perry in the office, patient with possible cardiac ablation outpatient at [facility]. From cardiology perspective, and exercise stress test is negative, ok to discharge from a cardiology perspective and patient to follow up outpatient with Dr. Perry, patient with follow up appointment tomorrow 03/17. Nurse practitioner note has been reviewed by physician. Signing provider agrees with the documented findings, assessment, and plan of care. Objective - Vital Signs Vital signs: Vital Signs Temp 97.4 F L 03/16/22 08:27 Pulse 61 03/16/22 08:27 Resp 15 03/16/22 08:27 BP 121/77 03/16/22 08:27 Pulse Ox 95 03/16/22 08:27 FiO2 Intake & Output 03/15/22 03/16/22 03/16/22 18:59 06:59 18:59 Intake Total 180 240 Balance 180 240 Weight 79.832 kg 80.8 kg Intake: Oral 180 240 Other: Voiding Method Toilet # Voids 1 - Labs CBC & Chem 7: 03/15/22 09:38 03/15/22 09:38
[2022-03-16] MEDS: LORATADINE 10 MG TAB PO SCH (14:30)
[2022-03-16] MEDS: SERTRALINE 50 MG TAB PO SCH (14:30)
[2022-03-16] MEDS: MONTELUKAST 10 MG TAB PO SCH (14:30)
[2022-03-16 17:11] VITALS: BP 135/75; PULSE 65; RESP 17; TEMP 97.2
--- NOTE | 2022-03-16 20:42 | CA ---
Exercise Stress Test Report Name: Mikhail August Exam Date: 03/16/2022 09:13 Exam Location: [place] [facility] Ht (in): 69 Wt (lb): 176 BSA: 1.96 Ordering Phys: Sommer Osullivan Referring Phys: KVNG, Technologist: Caleb Brian Age: 32 Gender: F : 1990 Procedure CPT: Indications: frequent PVCs and chest discomfort ICD-10 Codes: Patient History: Abnormal EKG, Chest pressure and vertigo Medications: Meds past 24 hrs: Pretest Chest Pain: STRESS TEST Misael Protocol Exercise Duration (min:sec): 09:[address] Depressions (mm): Angina Score: Ortiz Score: Resting HR (bpm): 68 Peak HR (bpm): 134 Resting BP (mmHg): 134 / 94 Peak BP (mmHg): 166 / 59 MPHR: 190 Target HR: 162 % MPHR: 71 METS: 10.3 Total Dose: Peak Dose: Atropine: Double Product: 50432 BP Response: Stress Termination: Patient request, Vertigo and short of breath Stress Symptoms: Syncope,, Dyspnea Stress Summary: ECG ANALYSIS Resting ECG: Stress ECG: CONCLUSIONS Baseline heart rate 68 beats a minute, Baseline blood pressure 134/94 mmHg Patient excisable Misael protocol for 9 minutes At baseline 12-lead EKG showed sinus mechanism normal WA narrow QRS no epsilon waves Absence of T-wave inversions in V3 and V4 Outflow tract PVCs with a left bundle branch block morphology tall QRS is in the inferior leads and an negative QRS in lead 1 and aVL With exercise there is an increase in PVC frequency and blood in with bigeminal PVCs Suppression of PVCs at peak exercise Patient exercised on Misael protocol for 9 minutes No history of ischemia Upon recovery bigeminal PVCs returned No nonsustained ventricular tachycardia Patient complained of shortness of breath Impression Frequent PVCs RVOT, septum Increase in frequency with initial exercise but suppression at peak exercise No nonsustained ventricular tachycardia High PVC burden No evidence for ischemia Dr. Douglas Perry MD (Electronically Signed) Final Date: 16 March 2022 20:40
--- NOTE | 2022-03-17 21:57 | P.DS ---
Providers Date of admission: 03/15/22 11:52 Attending physician: Kian Ramirez Consults: 03/15/22 11:41 Consult Physician Urgent Consulting Provider: Douglas Perry Reason/Comments: Symptomatic arrhythmia Do you want consulting provider notified?: Yes Primary care physician: Maksim Marie Lds Hospital Course: Final Diagnosis -Frequent PVCs -Lightheadedness, hypertension with headache under investigation -History of hypothyroidism TSH is within normal limits and current thyroid dosing continued -multiple seasonal allergies which patient does take fexofenadine which can cause some heart problems. She continues on current allergy medications including steroids and inhalers. -Anxiety disorder on sertraline. -Full Code Discharge Disposition Patient is stable for discharge home she has been cleared by cardiology. Cardiology recommending possible cardiac MRI outpatient and work up for possible arrythmogenic right ventricular dysplasia. Patient follows up with Dr. Perry on 03/17/22. Exercise stress test is negative, patient will resume home medications. Hospital Course This is a 32 year old female with medical history of hypothyroidism and asthma. She has been following with Dr. Perry. Patient reports being at work and having lightheadedness, headache and overall not feeling right. Blood pressure was elevated in the 150s/100s systolic and she was sent home from work. She was recommending to come to the emergency room by her swing driver for further evaluation. Patient has had symptoms of presyncope since the age of [age] and at that time she was diagnosed with hypothyroidism and started on synthroid therapy. Current TSH level 2.040. Tropnin is negative. There is evidence of frequent PVCs and Bigeminy noted on cardiac sonographer. Cardiology has evaluated patient and recommended exercise stress test which was performed and found to be negative. Cardiology will see patient in follow up on 03/17/22 and a cardiac MRI will be considered. Otherwise blood count panel and electrolyte panel unremarkable and blood pressure has normalized to 135/75. 03/16/2022 Patient evaluated today sitting up in bed. Plan to undergo exercise stress test today and if found negative will be discharged and has a follow up with Dr. Perry tomorrow in the office. She is denying chest pain, no shortness of breath. Currently denying dizziness. Lungs are clear, S1 S2 auscultated with sinus arrythmia and PVCs noted on auscultation. No acute events overnight. Most recent vitals showing temp of 97.2, heart rate 65, blood pressure 135/75, room air. Please see medication reconciliation for a list of current medication. Thank you for allowing us to participate in the care of this patient. The impression and plan of care has been dictated by Thea Ivan, Nurse Practitioner as directed. Dr. James MD I have performed a history and physical examination and medical decision making of this patient, discussed the same with the dictator, and agree with the dic tators assessment and plan as written, documented as a scribe. Based on total visit time, I have performed more than 50% of this visit. Patient Condition at Discharge: Stable Plan - Discharge Summary Discharge Rx Participant: No New Discharge Prescriptions: New Acetaminophen Tab [Tylenol] 650 mg PO Q6HR PRN tab PRN Reason: Mild Pain Or Fever > 100.5 Continue Sertraline HCl [Zoloft] 50 mg PO DAILY@1400 Montelukast [Singulair] 10 mg PO DAILY@1400 Levothyroxine Sodium [Synthroid] 50 mcg PO AC-BRKFST Fluticasone Nasal [place] [Flonase Nasal Malone] 1 spr EA NOSTRIL BID Fluticasone Propion/Salmeterol [Wixela 100-50 Inhub] 1 puff INHALATION RT-BID Discontinued Fexofenadine HCl [Robyn Allergy] 180 mg PO DAILY@1400 Discharge Medication List Fluticasone Nasal [place] [Flonase Nasal [place]] 1 spr EA NOSTRIL BID 03/15/22 [History] Fluticasone Propion/Salmeterol [Wixela 100-50 Inhub] 1 puff INHALATION RT-BID 03/15/22 [History] Levothyroxine Sodium [Synthroid] 50 mcg PO AC-BRKFST 03/15/22 [History] Montelukast [Singulair] 10 mg PO DAILY@1400 03/15/22 [History] Sertraline HCl [Zoloft] 50 mg PO DAILY@1400 03/15/22 [History] Acetaminophen Tab [Tylenol] 650 mg PO Q6HR PRN tab 03/16/22 [Rx] Follow up Appointment(s)/Referral(s): Douglas Perry MD [STAFF PHYSICIAN] - 03/17/22 11:15 am Maksim Marie DO [Primary Care Provider] - 1-2 days Patient Instructions/Handouts: Near Syncope (DC), Cardiac Stress Test (DC) Activity/Diet/Wound Care/Special Instructions: Patient has a follow up appointment scheduled with Dr. Perry on 03/17/22. Follow up and Dr. Perry will make further recommendations in regards to referral to [facility]. Please see primary care in 1 to 2 days. Discharge Disposition: HOME SELF-CARE
== END 2022-03-16 19:11 | disposition home or self-care (01) | DRG 312 ==
LOC: EC 08:50 → 3SCARD 11:52
PROVIDERS: ADMIT Internal Medicine; ATTEND Internal Medicine
DX: R55 Syncope and collapse (principal); R42 Dizziness and giddiness; R00.2 Palpitations; I49.3 Ventricular premature depolarization; J30.2 Other seasonal allergic rhinitis; I10 Essential (primary) hypertension; F41.9 Anxiety disorder, unspecified; E03.9 Hypothyroidism, unspecified; Z79.890 Hormone replacement therapy; J45.909 Unspecified asthma, uncomplicated; Z79.899 Other long term (current) drug therapy; Z83.3 Family history of diabetes mellitus; Z82.49 Family history of ischemic heart disease and other diseases of the circulatory system; Z88.8 Allergy status to other drugs, medicaments and biological substances; Z91.012 Allergy to eggs
CPT/HCPCS: 36415; 80053; 81001; 81025; 83735; 84443; 84484; 85025; 85610; 85730; 93005; 93017; 94640; 96361; 96374; 99285

== ENCOUNTER → 2022-05-03 | Outpatient (CLI) | payer OTHER ==
[2022-05-03 14:41] LABS: African American GFR (CKD) 108.1 (60.0-200.0); Anion Gap 8.9 mmol/L (10.00-18.00); Blood Urea Nitrogen 13.2 mg/dL (9.0-27.0); Carbon Dioxide 26.6 mmol/L (20.0-27.5); Non-African American GFR(CKD) 93.3 (60.0-200.0); Potassium 5.2 mmol/L (3.5-5.5)
[2022-05-03 15:26] LABS: HCT 42.1 % (37.2-46.3); HGB 14.4 g/dL (12.0-15.0); MCH 31.4 pg (27.0-32.0); MCHC 34.2 g/dL (32.0-37.0); MCV 91.9 fL (80.0-97.0); Mean Platelet Volume 13.6 fL (9.5-12.2); NRBC Per 100 WBC 0 /100 WBCS (0.0-0.0); Platelet Count 177 X 10*3/uL (140-440); RBC 4.58 X 10*6/uL (4.10-5.20); RDW 12.4 % (11.5-14.5); WBC 10.54 X 10*3/uL (4.50-10.00)
== END | disposition home or self-care (01) ==
LOC: LABPAT 11:15
PROVIDERS: ATTEND Internal Medicine Clinical Cardiac Electrophysiology
DX: Z01.812 Encounter for preprocedural laboratory examination (principal); I49.3 Ventricular premature depolarization; I47.29 Other ventricular tachycardia
CPT/HCPCS: 80051; 82565; 84520; 85027

== ENCOUNTER 2022-05-31 10:08 | Emergency (ER) | payer OTHER ==
--- NOTE | 2022-05-31 10:46 | ED ---
General Adult HPI - General Chief complaint: Recheck/Abnormal Lab/Rx Stated complaint: blood pressure/vision issues Time Seen by Provider: 05/31/22 10:27 Source: patient, RN notes reviewed, old records reviewed Mode of arrival: ambulatory Limitations: no limitations - History of Present Illness Initial comments: This is a well-appearing 32-year-old female that presents to the emergency room with complaints of elevated blood pressure, bradycardia and blurred vision today while at work. Patient states she woke up at 3 AM to go to work and had elevate d heart rate, headache and blood pressure was 134/114. She developed a headache with some blurred vision. At work they checked her heart rate and it was 39. She went home to rest and symptoms resolved at 7:30. She has been told in the past by ceramic products sales engineer that her elevated blood pressure was likely related to her menses. She states that she did start her menses today. is scheduled for an ablation with Dr. Perry on June 15. Is a nonsmoker, does not take any medication on a daily basis. -: hour(s) Location: head Radiation: non-radiation Consistency: now resolved Associated Symptoms: other (Blurred vision, headache, bradycardia, hypertension) Treatments Prior to Arrival: none - Related Data Home Medications Medication Instructions Recorded Confirmed Fluticasone Nasal Morton [Flonase 1 spr EA NOSTRIL BID 03/15/22 05/31/22 Nasal Morton] Levothyroxine Sodium [Synthroid] 50 mcg PO AC-BRKFST 03/15/22 05/31/22 Montelukast [Singulair] 10 mg PO DAILY@1400 03/15/22 05/31/22 Budesonide/Formoterol Fumarate 2 puff INHALATION RT-BID 05/31/22 05/31/22 [Symbicort 80-4.5 Mcg Inhaler] Fexofenadine HCl [Robyn Allergy] 180 mg PO DAILY@1400 05/31/22 05/31/22 Allergies Allergy/AdvReac Type Severity Reaction Status Date / Time egg Allergy Rash/Hives Verified 05/31/22 12:01 ethinyl estradiol AdvReac Cough Verified 05/31/22 12:01 [From Seasonale contraceptive] levonorgestrel AdvReac Cough Verified 05/31/22 12:01 [From Seasonale contraceptive] Review of Systems ROS Statement: Those systems with pertinent positive or pertinent negative responses have been documented in the HPI. ROS Other: All systems not noted in ROS Statement are negative. Past Medical History Past Medical History: Asthma, Thyroid Disorder Additional Past Medical History / Comment(s): Heart murmur. History of Any Multi-Drug Resistant Organisms: None Reported Additional Past Surgical History / Comment(s): 12/31/15 Past Anesthesia/Blood Transfusion Reactions: No Reported Reaction Past Psychological History: Anxiety Smoking Status: Never smoker Past Alcohol Use History: None Reported Past Drug Use History: Marijuana General Exam Limitations: no limitations General appearance: alert, in no apparent distress Head exam: Present: atraumatic, normocephalic Eye exam: Present: normal appearance. Absent: scleral icterus, conjunctival injection, periorbital swelling Neck exam: Present: normal inspection, full ROM. Absent: tenderness, meningismus Respiratory exam: Absent: respiratory distress, accessory muscle use Cardiovascular Exam: Present: bradycardia GI/Abdominal exam: Present: soft. Absent: distended, tenderness Extremities exam: Present: normal inspection, normal capillary refill. Absent: pedal edema Neurological exam: Present: alert, oriented X3 Psychiatric exam: Present: normal affect, normal mood Skin exam: Present: warm, dry, normal color. Absent: cyanosis, diaphoretic, petechiae, pallor Course Vital Signs 05/31/22 05/31/22 10:09 13:02 Temperature 98 F 97.7 F Pulse Rate 52 L 38 L Respiratory 18 16 Rate Blood Pressure 137/61 145/77 O2 Sat by Pulse 98 99 Oximetry Medical Decision Making - Medical Decision Making CBC and electrolytes are unremarkable troponin is negative at 0.012. EKG shows sinus rhythm with frequent PVCs, a ventricular rate of 61, MA interval 0.171, QRS 0.89, QTC 0.385. No significant change compared to old date 03/15/2022. No ST elevation. She was observed in the emergency room for several hours with no symptoms. Apical heart rate at discharge counted for 1 minute is 62. Ambulating in the room with no complaints of dizziness or blurred vision. She was instructed to follow-up with her ceramic products sales engineer as scheduled. Return to the emergency room if any new or concerning symptoms. Case discussed with Dr. Ellis Was pt. sent in by a medical professional or institution? @ -No Did you speak to anyone other than the patient for history? @ -No Did you review nursing and triage notes? @ -Yes I agree Were old charts reviewed? @ -Previous EKGs Differential Diagnosis? @ -Differential Dizziness: Hypertension, bradycardia, acute TN, hypovolemic, arrhythmia, coronary artery syndrome, anemia, this is not meant to be an all-inclusive list EKG interpreted by me (3pts min.)? @ -Yes as Above What testing was considered but not performed? (CT, X-rays, U/S, labs)? Why? @No What meds were considered but not given? Why? @ -IV fluids were considered. There is no concern for orthostatic hypotension or dehydration Did you discuss the management of the patient with other professionals? @ -No Did you reconcile home meds? @ -No Was smoking cessation discussed for >3mins.? @ -Not applicable Was critical care preformed (if so, how long)? @ - no Were there social determinants of health that impacted care today? How? (Homelessness, low income, unemployed, alcoholism, drug addiction, transportation, low edu. Level, literacy, decrease access to med. care, fdc, rehab)? @ -no @ -[Discuss DNR or withdrawal of care, Hospice?] What co-morbidities impacted this encounter? (DM, HTN, Smoking, COPD, CAD, Cancer, CVA, Hep., AIDS, mental health diagnosis, sleep apnea, morbid obesity)? @ -Asthma, hypothyroid, bradycardia, PVCs s patient admitted / discharged? @ Discharged Undiagnosed new problem with uncertain prognosis? @ -[none] Drug Therapy requiring intensive monitoring for toxicity (Heparin, Nitro, Insulin, Cardizem)? @ -[none] Were any procedures done? @ None Bradycardia hypertension @ -[default] Acute, or Chronic, or Acute on Chronic? @ -Acute on chronic Uncomplicated ncomplicated (without systemic symptoms) or Complicated (systemic symptoms)? @ -Uncomplicatedide effects of treatment? @ -[none] Exacerbation, Progression, or Severe Exacerbation] @ -[no] Poses a threat to life or bodily function? @ -[no] - Lab Data Result diagrams: 05/31/22 11:34 05/31/22 11:34 Lab Results 05/31/22 05/31/22 05/31/22 Range/Units 11:34 11:34 11:34 WBC 9.7 (3.8-10.6) k/uL RBC 4.71 (3.80-5.40) m/uL Hgb 14.7 (11.4-16.0) gm/dL Hct 43.5 (34.0-46.0) % MCV 92.5 (80.0-100.0) fL MCH 31.3 (25.0-35.0) pg MCHC 33.9 (31.0-37.0) g/dL RDW 12.6 (11.5-15.5) % Plt Count 188 (150-450) k/uL MPV 10.4 Neutrophils % 71 % Lymphocytes % 21 % Monocytes % 4 % Eosinophils % 1 % Basophils % 1 % Neutrophils # 6.9 (1.3-7.7) k/uL Lymphocytes # 2.0 (1.0-4.8) k/uL Monocytes # 0.4 (0-1.0) k/uL Eosinophils # 0.1 (0-0.7) k/uL Basophils # 0.1 (0-0.2) k/uL Sodium 139 (137-145) mmol/L Potassium 4.0 (3.5-5.1) mmol/L Chloride 102 (98-107) mmol/L Carbon Dioxide 27 (22-30) mmol/L Anion Gap 10 mmol/L BUN 17 (7-17) mg/dL Creatinine 0.79 (0.52-1.04) mg/dL Est GFR (CKD-EPI)AfAm >90 (>60 ml/min/1.73 sqM) Est GFR (CKD-EPI)NonAf >90 (>60 ml/min/1.73 sqM) Glucose 96 (74-99) mg/dL Calcium 8.9 (8.4-10.2) mg/dL Troponin I <0.012 (0.000-0.034) ng/mL Disposition Clinical Impression: Bradycardia, Palpitations Disposition: HOME SELF-CARE Condition: Good Instructions (If sedation given, give patient instructions): Bradycardia (ED) Additional Instructions: Follow-up with your ceramic products sales engineer as scheduled. Increase your fluid intake. Return to the emergency room with any new or concerning symptoms. Is patient prescribed a controlled substance at d/c from ED?: No Referrals: Maksim Marie DO [STAFF PHYSICIAN] - 1-2 days Time of Disposition: 12:46
[2022-05-31 11:45] LABS: Basophils # (A) 0.1 k/uL (0-0.2); Basophils % (A) 1 %; Eosinophils # (A) 0.1 k/uL (0-0.7); Eosinophils % (A) 1 %; HCT 43.5 % (34.0-46.0); HGB 14.7 gm/dL (11.4-16.0); Lymphocytes % (A) 21 %; MCH 31.3 pg (25.0-35.0); MCHC 33.9 g/dL (31.0-37.0); MCV 92.5 fL (80.0-100.0); Mean Platelet Volume 10.4; Monocytes # (A) 0.4 k/uL (0-1.0); Monocytes % (A) 4 %; Neutrophils # (A) 6.9 k/uL (1.3-7.7); Neutrophils % (A) 71 %; Platelet Count 188 k/uL (150-450); RBC 4.71 m/uL (3.80-5.40); RDW 12.6 % (11.5-15.5); WBC 9.7 k/uL (3.8-10.6)
[2022-05-31 12:13] LABS: African American GFR (CKD) >90 (>60 ml/min/1.73 sqM); Anion Gap 10 mmol/L; Blood Urea Nitrogen 17 mg/dL (7-17); Calcium 8.9 mg/dL (8.4-10.2); Carbon Dioxide 27 mmol/L (22-30); Chloride 102 mmol/L (98-107); Glucose 96 mg/dL (74-99); Non-African American GFR(CKD) >90 (>60 ml/min/1.73 sqM); Sodium 139 mmol/L (137-145)
[2022-05-31 13:04] VITALS: BP 145/77; PULSE 38; RESP 16; TEMP 97.7
== END 2022-05-31 13:13 | disposition home or self-care (01) ==
LOC: EC 10:08
DX: R00.1 Bradycardia, unspecified (principal); R00.2 Palpitations; J45.909 Unspecified asthma, uncomplicated; E07.9 Disorder of thyroid, unspecified; F41.9 Anxiety disorder, unspecified; F12.90 Cannabis use, unspecified, uncomplicated; Z88.8 Allergy status to other drugs, medicaments and biological substances; Z91.012 Allergy to eggs; Z79.890 Hormone replacement therapy; Z79.899 Other long term (current) drug therapy
CPT/HCPCS: 36415; 80048; 84484; 85025; 93005; 99284

== ENCOUNTER 2022-06-15 08:04 | Day surgery (SDC) | payer OTHER ==
[2022-06-12 13:00] VITALS: BMI 26.1
[~2022-06-15 08:04] MED LIST: DEXAMETHASONE SOD PHOSPHATE 4 MG/ML 1 ML VIAL IV ONE; HYDROmorphone 0.5 MG/0.5 ML SYRINGE IVP PRN; LACTATED RINGERS 1,000 ML IV SCH; MIDAZOLAM 2 MG/2 ML VIAL IV PRN; ONDANSETRON 4 MG/2 ML VIAL IVP ONE; SODIUM CHLORIDE 0.9% 1,000 ML IV SCH
[2022-06-15] MEDS ORDERED: SODIUM CHLORIDE 0.9% 1,000 ML IV ONE (08:16)
[2022-06-15] MEDS ORDERED: ISOPROTERENOL 250 MCG/1.25 ML SYR IV ONE ×2 (10:21→12:54)
[2022-06-15] MEDS ORDERED: fentaNYL (PF) 50 MCG/ML 2 ML AMP ONE (10:21)
[2022-06-15] MEDS ORDERED: MIDAZOLAM 2 MG/2 ML VIAL ONE (10:21)
[2022-06-15] MEDS ORDERED: LIDOCAINE 1% INJ 10MG/ML (10 ML MDV) SQ ONE (11:00)
[2022-06-15] MEDS ORDERED: HEPARIN SODIUM (1,000 UNIT/ML) 1,000 UNIT in SODIUM CHLORIDE 0.9% 1,000 ML IRRIGATION ONE (11:20)
[2022-06-15] MEDS ORDERED: ACETAMINOPHEN TAB 325 MG TAB PO PRN (12:53)
[2022-06-15] MEDS ORDERED: ACETAMINOPHEN IV (For NPO) 1,000 MG in EMPTY BAG 1 BAG IVPB ONE (12:53)
--- NOTE | 2022-06-15 13:08 | P.PRLE ---
RE: Mickie Elizondo Dear Jeannette Corado underwent successful mapping and ablation of a septal RVOT focus The PVCs were noninducible the end of the procedure However she does have elevations in her blood pressure readings and will need to be followed for hypertension Thank you for entrusting me with the care of the patient Warm regards Sincerely Douglas Perry
--- NOTE | 2022-06-15 13:19 | P.EPPROC ---
- EP Procedure Note Electrophysiology Procedure Note: Diagnosis RVOT PVCs, septal Recurrent palpitations, worse with exercise History of hypothyroidism Elevated blood pressure readings Recurrent chest discomfort Final result Frequent septal RVOT PVCs Successful mapping and ablation and illumination of the PVC focus Intracardiac echo revealed thickening of the pericardium Patient has a history of an upper respiratory/viral infection in January 2022 This may be the cause of her recurrent chest discomfort Elevated blood pressure reading, 139/96. Details Patient was brought to the EP lab in a fasting state. Written informed consent was obtained prior to the procedure. Mild sedation was given However the patient was kept fairly awake through the procedure. She was experiencing PVCs ST and to the EP lab and continued to have These PVCs had a left bundle branch block morphology with a late transition, tall upright QRS is in the inferior leads and a negative/W shaped morphology in lead 1 Venous sheaths were placed in the right and left femoral veins Diagnostic catheters were positioned in the right heart including high right atrium, coronary sinus, RV, His bundle area Sinus cycle length 1134 ms, ID and 165 ms, QRS 88 ms and QT 464 ms AH 67 and HV 31 ms Sinus node recovery times at 600, 500, and 400 ms were 952, 1265 and 1046 ms. Corresponding corrected sinus node recovery times abnormal AV node Wenckebach block in the baseline state is 590 ms On Isuprel AV node Wenckebach block 260 ms Mapping and ablation catheter was placed Intracardiac echo catheter was placed 3-D anatomical mapping was performed. 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 Activation mapping of the PVCs performed Septal location was identified with early bipolar signals and very sharp negative deflection in the unipolar signals First RF lesion resulted in near complete elimination of the PVCs RF ablation was applied around the site up to 40 W Thereafter went atrial pacing was performed a PVC of almost similar morphology, 93% concordance was obtained The mapping was performed and RF ablation lesion applied slightly posterior to the early site with elevation of this PVC Following that Isuprel was given in bursts Atrial pacing was performed ventricular pacing was performed atrial extra stimulation was performed Testing was performed during Isuprel withdrawal multiple times No further PVCs were noted in the baseline state, on Isuprel and during withdrawal from Isuprel as well as during atrial or ventricular pacing Venous sheaths were removed catheters were removed Vascade closure applied Patient tolerated the procedure well without any acute complications Intracardiac echo confirmed absence of any pericardial effusion at the end of the procedure
--- NOTE | 2022-06-15 13:22 | P.HPCAR ---
History of Present Illness This is Dr. Perry dictating an H/P on this patient The patient was interviewed and examined IMPRESSION / ASSESSMENT: Recurrent palpitations, RV 80 PVCs Hypothyroidism with a normal TSH on replacement therapy Elevated blood pressure readings off and on when normal CMP Normal echo normal cardiac MRI Elevated blood pressure readings that correlate with her menstrual cycle PLAN: Diagnostic EP study and radial frequency ablation for RV 80 PVCs HPI Patient continues to have palpitations, with recurrent chest discomfort shortn ess of breath This morning her blood pressure is mildly elevated prior to the procedure She denies any fever chills cough expectoration No lower extremity edema ROS: No fever chills or rigors, no cough, phlegm or expectoration, no nausea, vomiting or diarrhea, no hematuria, dysuria, no musculoskeletal complaints, no strokes or seizures, no skin lesions. EXAMINATION: Mildly elevated blood pressure no JVD Breath sounds are clear no rhonchi no crackles Normal heart sounds but irregular with premature beats Abdomen soft Extremities warm no edema REVIEW OF LABS, ECG & MEDICAL DATA . HCG negative Physical Exam Vitals: Vital Signs Temp Pulse Resp BP Pulse Ox 06/15/22 08:47 98.5 F 65 16 139/96 97 Intake and Output 06/14/22 06/15/22 06/15/22 22:59 06:59 14:59 Intake Total 754 Balance 754 Intake: IV 754 Past Medical History Past Medical History: Asthma, Thyroid Disorder Additional Past Medical History / Comment(s): Dr Perry's H&P in EMR (from 05/11/22). Have a blood clotting gene, can't recall name of it. "Have hole on centre wall, that needs repairing". History of Any Multi-Drug Resistant Organisms: None Reported Past Surgical History: No Surgical Hx Reported Additional Past Surgical History / Comment(s): Oral surgery. Past Anesthesia/Blood Transfusion Reactions: No Reported Reaction, Motion Sickness Past Psychological History: Anxiety Smoking Status: Never smoker Past Alcohol Use History: Rare Past Drug Use History: Marijuana Additional Drug Use History / Comment(s): Occasional Marijuana use. aware no use 24 hrs prior to procedure. - Past Family History Mother Family Medical History: No Reported History Physical Examination Vital Signs Temp Pulse Resp BP Pulse Ox 06/15/22 08:47 98.5 F 65 16 139/96 97 Intake and Output 06/14/22 06/15/22 06/15/22 22:59 06:59 14:59 Intake Total 754 Balance 754 Intake: IV 754 Results Current Medications Generic Name Dose Route Start Last Admin Trade Name Dario PRN Reason Stop Dose Admin Acetaminophen 650 mg 06/15/22 12:53 Acetaminophen Tab 325 Mg Tab PO 07/15/22 12:54 Q6HR PRN Mild Pain (Scale 1 to 3) Hydromorphone HCl 0.5 mg 06/15/22 07:00 Hydromorphone 0.5 Mg/0.5 Ml Syringe IVP 06/15/22 23:00 Q5M PRN Phase 1 or 2 - Pain Control Lactated Ringer's 1,000 mls @ 20 mls/hr 06/15/22 05:53 Lactated Ringers IV 07/15/22 05:54 .Q24H LAURA Sodium Chloride 12 ml 06/15/22 12:53 Sodium Chloride 0.9% Flush 10 Ml Syringe IV 07/15/22 12:54 Q12HR PRN Line Flush Intake and Output 06/14/22 06/15/22 06/15/22 22:59 06:59 14:59 Intake Total 754 Balance 754 Intake: IV 754
[2022-06-15 14:50] VITALS: RESP 18; TEMP 98
[2022-06-15 17:09] VITALS: BP 133/71; PULSE 62
[2022-06-15] MEDS ORDERED: COLCHICINE 0.6 MG EACH PO SCH (18:00)
== END 2022-06-15 20:14 | disposition home or self-care (01) ==
LOC: CATHEP 08:04 → 6NMEDSUR 12:50 → CATHEP 20:14
PROVIDERS: ATTEND Internal Medicine Clinical Cardiac Electrophysiology
DX: I44.7 Left bundle-branch block, unspecified (principal); I47.20 Ventricular tachycardia, unspecified; R00.2 Palpitations; E03.9 Hypothyroidism, unspecified; R03.0 Elevated blood-pressure reading, without diagnosis of hypertension; R07.89 Other chest pain; F12.90 Cannabis use, unspecified, uncomplicated; Z79.890 Hormone replacement therapy; Z88.8 Allergy status to other drugs, medicaments and biological substances; Z79.899 Other long term (current) drug therapy
CPT/HCPCS: 93623; 93662; 93654; 81025; C1894; C1769 ×2; C1760; C1730; C1759; C1732; J2250; J3010; J1644; J2001

== ENCOUNTER 2023-07-21 11:05 | Emergency (ER) | payer OTHER ==
[2023-07-21 11:25] VITALS: RESP 18; TEMP 97.6
--- NOTE | 2023-07-21 13:00 | ED ---
General Adult HPI - General Chief complaint: Dizziness Stated complaint: High Blood Pressure Time Seen by Provider: 07/21/23 12:15 Source: patient, RN notes reviewed Mode of arrival: ambulatory Limitations: no limitations - History of Present Illness Initial comments: Patient is a pleasant 33-year-old female presenting to the emergency department concerned with her blood pressure. Patient has had problems for the past couple of months. Patient did have upper respiratory infection and has been on steroids and antibiotics which seem to help her blood pressure. Patient has been off these now and her blood pressure has been going up. Patient is having some lightheadedness and occasional headaches. Patient sometimes just feels funny. No weakness. No chest pain or back pain. - Related Data Home Medications Medication Instructions Recorded Confirmed Fluticasone Nasal [place] [Flonase 1 spr EA NOSTRIL BID 03/15/22 09/25/22 Nasal [place]] Levothyroxine Sodium [Synthroid] 50 mcg PO AC-BRKFST 03/15/22 09/25/22 Montelukast [Singulair] 10 mg PO HS 03/15/22 09/25/22 Budesonide/Formoterol Fumarate 2 puff INHALATION RT-HS 05/31/22 09/25/22 [Symbicort 80-4.5 Mcg Inhaler] Fexofenadine HCl [Robyn Allergy] 180 mg PO DAILY PRN 05/31/22 09/25/22 Sertraline [Zoloft] 50 mg PO DAILY 09/25/22 09/25/22 Allergies Allergy/AdvReac Type Severity Reaction Status Date / Time egg Allergy Rash/Hives Verified 07/21/23 11:24 ethinyl estradiol AdvReac Cough Verified 07/21/23 11:24 [From Seasonale contraceptive] levonorgestrel AdvReac Cough Verified 07/21/23 11:24 [From [place]ale contraceptive] Review of Systems ROS Statement: Those systems with pertinent positive or pertinent negative responses have been documented in the HPI. ROS Other: All systems not noted in ROS Statement are negative. Constitutional: Denies: fever Eyes: Denies: eye pain ENT: Denies: ear pain Respiratory: Denies: cough, dyspnea Cardiovascular: Denies: chest pain Endocrine: Denies: fatigue Gastrointestinal: Denies: abdominal pain Musculoskeletal: Denies: back pain Neurological: Reports: as per HPI Past Medical History Past Medical History: Asthma, Thyroid Disorder Additional Past Medical History / Comment(s): Heart murmur. History of Any Multi-Drug Resistant Organisms: None Reported Additional Past Surgical History / Comment(s): 12/31/15 Past Anesthesia/Blood Transfusion Reactions: No Reported Reaction Past Psychological History: Anxiety Smoking Status: Never smoker Past Alcohol Use History: None Reported Past Drug Use History: Marijuana General Exam Limitations: no limitations General appearance: alert, in no apparent distress Head exam: Present: atraumatic, normocephalic Eye exam: Present: normal appearance, PERRL, EOMI Neck exam: Present: normal inspection Respiratory exam: Present: normal lung sounds bilaterally Cardiovascular Exam: Present: regular rate, normal rhythm Expanded Peripheral pulses: 2+: Radial (R), Radial (L), Dorsalis Pedis (R), Dorsalis Pedis (L) GI/Abdominal exam: Present: soft. Absent: tenderness, pulsatile mass Extremities exam: Present: normal inspection Neurological exam: Present: alert, CN II-XII intact. Absent: motor sensory deficit Expanded Neurological exam: Present: protecting the airway Speech: Present: fluid speech Cranial nerves: EOM's Intact: Normal Motor strength exam: RUE: 5, LUE: 5, RLE: 5, LLE: 5 Eye Response: (4) open spontaneously Motor Response: (6) obeys commands Verbal Response: (5) oriented Psychiatric exam: Present: normal affect, normal mood Skin exam: Present: normal color Course Vital Signs 07/21/23 07/21/23 07/21/23 11:18 12:44 14:43 Temperature 97.6 F Pulse Rate 71 56 L Respiratory 18 18 Rate Blood Pressure 163/100 143/84 Blood Pressure 171/98 [Left Arm] Blood Pressure 153/110 [Right Arm] O2 Sat by Pulse 100 Oximetry Medical Decision Making - Medical Decision Making Was pt. sent in by a medical professional or institution (, PA, COMMUNICATIONS STATION MANAGER, urgent care, hospital, or jail...) When possible be specific @ -No Did you speak to anyone other than the patient for history (EMS, parent, family, police, friend...)? What history was obtained from this source @ -No Did you review nursing and triage notes (agree or disagree)? Why? @ -I reviewed and agree with nursing and triage notes Were old charts reviewed (outside hosp., previous admission, EMS record, old EKG, old radiological studies, urgent care reports/EKG's, jail records)? Report findings @ -No old charts were reviewed Differential Diagnosis (chest pain, altered mental status, abdominal pain women, abdominal pain men, vaginal bleeding, weakness, fever, dyspnea, syncope, headache, dizziness, GI bleed, back pain, seizure, CVA, palpatations, mental health, musculoskeletal)? @ -Differential Dizziness: Benign paroxysmal positional Vertigo, Menieres disease, otitis media, acoustic neuroma, vertebrobasilar insufficiency, cerebellar stroke, encephalitis, hypovolemic, arrhythmia, coronary artery syndrome, anemia, this is not meant to be an all-inclusive list EKG interpreted by me (3pts min.). @ -As above X-rays interpreted by me (1pt min.). @ -Chest x-ray shows no acute process CT interpreted by me (1pt min.). @ -None done U/S interpreted by me (1pt. min.). @ -None done What testing was considered but not performed or refused? (CT, X-rays, U/S, labs)? Why? @ -None What meds were considered but not given or refused? Why? @ -None Did you discuss the management of the patient with other professionals (professionals i.e. , PA, COMMUNICATIONS STATION MANAGER, lab, RT, psych nurse, family welfare social work professor, branch library clerk, teacher, tactical intelligence officer, shoe caser)? Give summary @ -No Was smoking cessation discussed for >3mins.? @ -No Was critical care preformed (if so, how long)? @ -No Were there social determinants of health that impacted care today? How? (Homelessness, low income, unemployed, alcoholism, drug addiction, transportation, low edu. Level, literacy, decrease access to med. care, skilled nursing, rehab)? @ -No Was there de-escalation of care discussed even if they declined (Discuss DNR or withdrawal of care, Hospice)? DNR status @ -No What co-morbidities impacted this encounter? (DM, HTN, Smoking, COPD, CAD, Cancer, CVA, ARF, Chemo, Hep., AIDS, mental health diagnosis, sleep apnea, morbid obesity)? @ -None Was patient admitted / discharged? Hospital course, mention meds given and route, prescriptions, significant lab abnormalities, going to OR and other pertinent info. @ -Patient presents with hypertension. Patient given medication. Symptoms have near resolved at this time. Blood pressure stable. Bilateral blood pressure difference less than 20. Patient updated on results and need for follow-up. Undiagnosed new problem with uncertain prognosis? @ -No Drug Therapy requiring intensive monitoring for toxicity (Heparin, Nitro, Insulin, Cardizem)? @ -No Were any procedures done? @ -No Diagnosis/symptom? @ -Hypertension Acute, or Chronic, or Acute on Chronic? @ -Acute Uncomplicated (without systemic symptoms) or Complicated (systemic symptoms)? @ -Default Side effects of treatment? @ -No Exacerbation, Progression, or Severe Exacerbation? @ -No Poses a threat to life or bodily function? How? (Chest pain, USA, SC, pneumonia, PE, COPD, DKA, ARF, appy, cholecystitis, CVA, Diverticulitis, Homicidal, Suicidal, threat to staff... and all critical care pts) @ -No - Lab Data Result diagrams: 07/21/23 13:32 07/21/23 13:32 Lab Results 07/21/23 07/21/23 07/21/23 Range/Units 13:32 13:32 13:32 WBC 10.9 H (3.8-10.6) k/uL RBC 4.84 (3.80-5.40) m/uL Hgb 15.6 (11.4-16.0) gm/dL Hct 44.9 (34.0-46.0) % MCV 92.7 (80.0-100.0) fL MCH 32.1 (25.0-35.0) pg MCHC 34.7 (31.0-37.0) g/dL RDW 12.6 (11.5-15.5) % Plt Count 265 (150-450) k/uL MPV 9.4 Neutrophils % 72 % Lymphocytes % 20 % Monocytes % 5 % Eosinophils % 1 % Basophils % 1 % Neutrophils # 7.9 H (1.3-7.7) k/uL Lymphocytes # 2.1 (1.0-4.8) k/uL Monocytes # 0.6 (0-1.0) k/uL Eosinophils # 0.1 (0-0.7) k/uL Basophils # 0.1 (0-0.2) k/uL PT 10.1 (10.0-12.5) sec INR 0.9 (<1.2) APTT 26.9 (22.0-30.0) sec Sodium 140 (137-145) mmol/L Potassium 3.9 (3.5-5.1) mmol/L Chloride 103 (98-107) mmol/L Carbon Dioxide 27 (22-30) mmol/L Anion Gap 10 mmol/L BUN 18 H (7-17) mg/dL Creatinine 0.86 (0.52-1.04) mg/dL Est GFR (CKD-EPI)AfAm >90 (>60 ml/min/1.73 sqM) Est GFR (CKD-EPI)NonAf >90 (>60 ml/min/1.73 sqM) Glucose 92 (74-99) mg/dL Plasma Lactic Acid Mar[place] (0.7-2.0) mmol/L Calcium 9.5 (8.4-10.2) mg/dL Magnesium 2.2 (1.6-2.3) mg/dL Total Bilirubin 1.1 (0.2-1.3) mg/dL AST 29 (14-36) U/L ALT 50 H (4-34) U/L Alkaline Phosphatase 90 (38-126) U/L Troponin I (0.000-0.034) ng/mL Total Protein 8.4 H (6.3-8.2) g/dL Albumin 5.0 (3.5-5.0) g/dL TSH 3.360 (0.465-4.680) mIU/L 07/21/23 07/21/23 Range/Units 13:32 13:32 WBC (3.8-10.6) k/uL RBC (3.80-5.40) m/uL Hgb (11.4-16.0) gm/dL Hct (34.0-46.0) % MCV (80.0-100.0) fL MCH (25.0-35.0) pg MCHC (31.0-37.0) g/dL RDW (11.5-15.5) % Plt Count (150-450) k/uL MPV Neutrophils % % Lymphocytes % % Monocytes % % Eosinophils % % Basophils % % Neutrophils # (1.3-7.7) k/uL Lymphocytes # (1.0-4.8) k/uL Monocytes # (0-1.0) k/uL Eosinophils # (0-0.7) k/uL Basophils # (0-0.2) k/uL PT (10.0-12.5) sec INR (<1.2) APTT (22.0-30.0) sec Sodium (137-145) mmol/L Potassium (3.5-5.1) mmol/L Chloride (98-107) mmol/L Carbon Dioxide (22-30) mmol/L Anion Gap mmol/L BUN (7-17) mg/dL Creatinine (0.52-1.04) mg/dL Est GFR (CKD-EPI)AfAm (>60 ml/min/1.73 sqM) Est GFR (CKD-EPI)NonAf (>60 ml/min/1.73 sqM) Glucose (74-99) mg/dL Plasma Lactic Acid [place] 0.8 (0.7-2.0) mmol/L Calcium (8.4-10.2) mg/dL Magnesium (1.6-2.3) mg/dL Total Bilirubin (0.2-1.3) mg/dL AST (14-36) U/L ALT (4-34) U/L Alkaline Phosphatase (38-126) U/L Troponin I <0.012 (0.000-0.034) ng/mL Total Protein (6.3-8.2) g/dL Albumin (3.5-5.0) g/dL TSH (0.465-4.680) mIU/L Disposition Clinical Impression: Hypertension Disposition: HOME SELF-CARE Condition: Stable Instructions (If sedation given, give patient instructions): Hypertension (ED) Additional Instructions: Please do follow-up with your primary care physician in the next 1 or 2 days for recheck. Return for increased blood pressure, chest pain or weakness, worsening or changing symptoms, headaches or other concerns Is patient prescribed a controlled substance at d/c from ED?: No Referrals: Maksim Marie DO [Primary Care Provider] - 1-2 days Time of Disposition: 15:09
[2023-07-21] MEDS: amLODIPine 5 MG TAB PO STA (13:24)
--- NOTE | 2023-07-21 13:33 | XR ---
EXAMINATION TYPE: XR chest 2V DATE OF EXAM: 07/21/2023 COMPARISON: NONE HISTORY: Weakness. TECHNIQUE: Frontal and lateral views of the chest are obtained. FINDINGS: There is no focal air space opacity, pleural effusion, or pneumothorax seen. The cardiac silhouette size is within normal limits. The osseous structures are intact. IMPRESSION: No acute cardiopulmonary process.
[2023-07-21] MEDS: ACETAMINOPHEN IV (For NPO) 1,000 MG in EMPTY BAG 1 BAG IVPB STA (13:44)
[2023-07-21] MEDS: SODIUM CHLORIDE 0.9% 1,000 ML IV STA (13:45)
[2023-07-21 13:58] LABS: Basophils # (A) 0.1 k/uL (0-0.2); Basophils % (A) 1 %; Eosinophils # (A) 0.1 k/uL (0-0.7); Eosinophils % (A) 1 %; HCT 44.9 % (34.0-46.0); HGB 15.6 gm/dL (11.4-16.0); Lymphocytes # (A) 2.1 k/uL (1.0-4.8); Lymphocytes % (A) 20 %; MCH 32.1 pg (25.0-35.0); MCHC 34.7 g/dL (31.0-37.0); MCV 92.7 fL (80.0-100.0); Mean Platelet Volume 9.4; Monocytes # (A) 0.6 k/uL (0-1.0); Monocytes % (A) 5 %; Neutrophils # (A) 7.9 k/uL (1.3-7.7); Neutrophils % (A) 72 %; Platelet Count 265 k/uL (150-450); RBC 4.84 m/uL (3.80-5.40); RDW 12.6 % (11.5-15.5); WBC 10.9 k/uL (3.8-10.6)
[2023-07-21 14:14] LABS: INR 0.9 (<1.2); Partial Thromboplastin Time 26.9 sec (22.0-30.0); Prothrombin Time 10.1 sec (10.0-12.5)
[2023-07-21 14:21] LABS: ALT 50 U/L (4-34); AST 29 U/L (14-36); African American GFR (CKD) >90 (>60 ml/min/1.73 sqM); Alkaline Phosphatase 90 U/L (38-126); Anion Gap 10 mmol/L; Blood Urea Nitrogen 18 mg/dL (7-17); Calcium 9.5 mg/dL (8.4-10.2); Carbon Dioxide 27 mmol/L (22-30); Chloride 103 mmol/L (98-107); Glucose 92 mg/dL (74-99); Magnesium 2.2 mg/dL (1.6-2.3); Non-African American GFR(CKD) >90 (>60 ml/min/1.73 sqM); Potassium 3.9 mmol/L (3.5-5.1); Sodium 140 mmol/L (137-145); Total Bilirubin 1.1 mg/dL (0.2-1.3); Total Protein 8.4 g/dL (6.3-8.2)
[2023-07-21 14:57] VITALS: BP 143/84; PULSE 56
== END 2023-07-21 15:25 | disposition home or self-care (01) ==
LOC: EC 11:05
DX: I10 Essential (primary) hypertension (principal); J45.909 Unspecified asthma, uncomplicated; E07.9 Disorder of thyroid, unspecified; F41.9 Anxiety disorder, unspecified; Z79.890 Hormone replacement therapy; Z79.899 Other long term (current) drug therapy; Z79.51 Long term (current) use of inhaled steroids; Z91.012 Allergy to eggs; Z88.8 Allergy status to other drugs, medicaments and biological substances
CPT/HCPCS: 36415; 80053; 83605; 83735; 84443; 84484; 85025; 85610; 85730; 71046; 99284; 96365; 96361; J0131

== ENCOUNTER → 2023-07-21 | Outpatient (CLI) | payer OTHER ==
[2023-07-21 13:20] LABS: Basophils # (A) 0.07 X 10*3/uL (0.00-0.10); Basophils % (A) 0.7 %; Eosinophils % (A) 1.9 %; HCT 43.9 % (37.2-46.3); HGB 14.7 g/dL (12.0-15.0); Lymphocytes # (A) 3.05 X 10*3/uL (0.90-5.00); Lymphocytes % (A) 28.8 %; MCH 30.6 pg (27.0-32.0); MCHC 33.5 g/dL (32.0-37.0); MCV 91.5 FL (80.0-97.0); Mean Platelet Volume 11.8 FL (9.5-12.2); Monocytes # (A) 0.78 X 10*3/uL (0.20-1.00); Monocytes % (A) 7.4 %; NRBC Per 100 WBC 0 X 10*3/uL (0.00-0.01); Neutrophils # (A) 6.42 X 10*3/uL (1.80-7.70); Neutrophils % (A) 60.5 %; Platelet Count 256 X 10*3/uL (140-440); RDW 12.5 % (11.5-14.5); WBC 10.59 X 10*3/uL (4.50-10.00)
[2023-07-21 13:40] LABS: ALT 41 U/L (8-44); AST 20 U/L (13-35); Albumin 4.4 g/dL (3.8-4.9); Albumin/Globulin Ratio 1.52 Ratio (1.60-3.17); Alkaline Phosphatase 82 U/L (41-126); BUN/Creat Ratio 21.33 Ratio (12.00-20.00); Blood Urea Nitrogen 19.2 mg/dL (9.0-27.0); Calcium 9.5 mg/dL (8.7-10.3); Carbon Dioxide 27.7 mmol/L (21.6-31.8); Chloride 100 mmol/L (96-109); Chol/HDL Ratio 3.98 Ratio; Globulin 2.9 g/dL (1.6-3.3); Glucose 90 mg/dL (70-110); LDL Cholesterol,Calculated 75.6 mg/dL (0.0-131.0); Magnesium 2.2 mg/dL (1.5-2.4); Potassium 4.8 mmol/L (3.5-5.5); Sodium 141 mmol/L (135-145); Total Bilirubin 0.6 mg/dL (0.3-1.2); Total Protein 7.3 g/dL (6.2-8.2)
== END | disposition home or self-care (01) ==
LOC: LABWHC1 09:07
PROVIDERS: ATTEND Internal Medicine Clinical Cardiac Electrophysiology
DX: I10 Essential (primary) hypertension (principal); E78.5 Hyperlipidemia, unspecified
CPT/HCPCS: 36415; 80053; 80061; 83735; 84443; 85025

== ENCOUNTER → 2023-07-26 | Outpatient (CLI) | payer OTHER | END | disposition home or self-care (01) | LOC: LABWHC1 13:10 | PROVIDERS: ATTEND Internal Medicine Clinical Cardiac Electrophysiology | DX: I10 Essential (primary) hypertension (principal) | CPT/HCPCS: 36415; 82088; 82533; 83835 ==

== ENCOUNTER → 2023-10-23 | Outpatient (CLI) | payer OTHER ==
--- NOTE | 2023-10-23 10:31 | US ---
EXAMINATION TYPE: US renal artery duplex complet DATE OF EXAM: 10/23/2023 COMPARISON: NONE CLINICAL INDICATION: Female, 33 years old with history of Q271 RENAL ARTERY STENOSIS; high BP 6 month s, on control to see if hormones effect it for the better MEASUREMENTS: RENAL SIZE: Right Kidney: 10.1 x 4.4 x 4.0cm Left Kidney: 11.4 x 4.3 x 4.8cm Right Kidney: No hydronephrosis or lesions seen Left Kidney: No hydronephrosis or lesions seen Abd Aorta: wnl, bifurcation obscured by bowel gas RESISTANCE INDEX Right: 0.6 Left: 0.6 RA/AO RATIO (< 3.5 ) Right: 1.7 Left: 1.2 RENAL ARTERY VELOCITY ( < 180 cm/s) Right: 158.9 Left: 111.7 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
== END | disposition home or self-care (01) ==
LOC: RADUSWWP 08:08
PROVIDERS: ATTEND Internal Medicine Clinical Cardiac Electrophysiology
DX: I70.1 Atherosclerosis of renal artery (principal); I10 Essential (primary) hypertension; Z79.3 Long term (current) use of hormonal contraceptives
CPT/HCPCS: 93975

== ENCOUNTER 2024-01-28 10:59 | Emergency (ER) | payer OTHER ==
[2024-01-28 11:11] VITALS: TEMP 98.2
--- NOTE | 2024-01-28 12:23 | ED ---
Recheck HPI - General Chief Complaint: Recheck/Abnormal Lab/Rx Stated Complaint: Hypertension Time Seen by Provider: 01/28/24 11:31 Source: patient, RN notes reviewed Mode of arrival: ambulatory Limitations: no limitations - History of Present Illness Initial Comments: This is a 33-year-old female who presents to the emergency department for elevated blood pressure. Currently follows with Dr. Perry, cardiology, for blood pressure management. She is not currently taking medication for her blood pressure. States that they have been trying to manage it in other ways. She has changed forms of control which have been temporarily effective. However, states that she checks her blood pressure regularly and it has been in the 140s to 160s systolically at home and she has had various episodes of palpitations and generally feeling unwell. She initially went to urgent care and was advised to come to the emergency department for further evaluation. States that she also feels like her thyroid may be off, as these are symptoms she typically gets when her thyroid level is irregular. Currently taking 50 mcg and has not had her dose change in 2 years. - Related Data Home Medications Medication Instructions Recorded Confirmed Fluticasone Nasal [place] [Flonase 1 spr EA NOSTRIL BID 03/15/22 09/25/22 Nasal [place]] Levothyroxine Sodium [Synthroid] 50 mcg PO AC-BRKFST 03/15/22 09/25/22 Montelukast [Singulair] 10 mg PO HS 03/15/22 09/25/22 Budesonide/Formoterol Fumarate 2 puff INHALATION RT-HS 05/31/22 09/25/22 [Symbicort 80-4.5 Mcg Inhaler] Fexofenadine HCl [Robyn Allergy] 180 mg PO DAILY PRN 05/31/22 09/25/22 Sertraline [Zoloft] 50 mg PO DAILY 09/25/22 09/25/22 Allergies Allergy/AdvReac Type Severity Reaction Status Date / Time egg Allergy Rash/Hives Verified 01/28/24 11:11 Review of Systems ROS Statement: Those systems with pertinent positive or pertinent negative responses have been documented in the HPI. ROS Other: All systems not noted in ROS Statement are negative. Past Medical History Past Medical History: Asthma, Thyroid Disorder Additional Past Medical History / Comment(s): Heart murmur. History of Any Multi-Drug Resistant Organisms: None Reported Additional Past Surgical History / Comment(s): 12/31/15 Past Anesthesia/Blood Transfusion Reactions: No Reported Reaction Past Psychological History: Anxiety Smoking Status: Never smoker Past Alcohol Use History: None Reported Past Drug Use History: Marijuana General Exam Limitations: no limitations General appearance: alert, in no apparent distress Head exam: Present: atraumatic, normocephalic, normal inspection Respiratory exam: Present: normal lung sounds bilaterally. Absent: respiratory distress, wheezes, rales, rhonchi, stridor Cardiovascular Exam: Present: regular rate, normal rhythm, normal heart sounds. Absent: systolic murmur, diastolic murmur, rubs, gallop, clicks Neurological exam: Present: alert, oriented X3, CN II-XII intact Psychiatric exam: Present: normal affect, normal mood Skin exam: Present: warm, dry, intact, normal color. Absent: rash Course Vital Signs 01/28/24 01/28/24 01/28/24 11:07 11:24 11:26 Temperature 98.2 F Pulse Rate 63 70 Pulse Rate [ 70 Prenatal Teacher ] Respiratory 18 18 Rate Blood Pressure 160/100 153/95 O2 Sat by Pulse 100 99 Oximetry 01/28/24 01/28/24 14:18 15:58 Temperature Pulse Rate 49 L 79 Pulse Rate [ Prenatal Teacher ] Respiratory 18 16 Rate Blood Pressure 151/102 144/90 O2 Sat by Pulse 99 97 Oximetry Medical Decision Making - Medical Decision Making This is a 33 year old female who presents to the emergency department for hypertension. Was pt. sent in by a medical professional or institution? @ -Urgent care Did you speak to anyone other than the patient for history? @ -No Did you review nursing and triage notes? @ -Yes, and I agree, it is accurate with regards to the patient's symptoms. Were old charts reviewed? @ -No Differential Diagnosis? @ -Differential Hypertension: Renal artery stenosis, medications, hypothyroidism, this is not meant to be an all-inclusive list. EKG interpreted by me (3pts min.)? @ -EKG interpreted by me demonstrating the following: Sinus bradycardia. Ventricular rate 51 bpm, FL interval 171 ms, QRS duration 83 ms, QTc 418 ms. X-rays interpreted by me (1pt min.)? @ -Not obtained CT interpreted by me (1pt min.)? @ -Not obtained U/S interpreted by me (1pt. min.)? @ -Not obtained What testing was considered but not performed? (CT, X-rays, U/S, labs)? Why? @ -None What meds were considered but not given? Why? @ -None Did you discuss the management of the patient with other professionals? @ -No Did you reconcile home meds? @ -No Was smoking cessation discussed for >3mins.? @ -No Was critical care preformed (if so, how long)? @ -No Were there social determinants of health that impacted care today? How? (Homelessness, low income, unemployed, alcoholism, drug addiction, transportation, low edu. Level, literacy, decrease access to med. care, residential, rehab)? @ -No Was there de-escalation of care discussed even if they declined? (Discuss DNR or withdrawal of care, Hospice)? @ -No What co-morbidities impacted this encounter? (DM, HTN, Smoking, COPD, CAD, Cancer, CVA, Hep., AIDS, mental health diagnosis, sleep apnea, morbid obesity)? @ -Hypertension Was patient admitted / discharged? @ -Discharged. Lab work demonstrates a TSH of 11.6. Free T4 is within normal limits at 0.89. Lab work otherwise unremarkable. Urinalysis negative for signs of infection. Patient was hypertensive in the emergency department in the 140s to 150s, but did not require any intervention on our part. She was also relatively asymptomatic. Advised that based on her current thyroid levels a change in her medication dose is not necessarily indicated. However, given that she is very borderline on the T4 and TSH is relatively high she could potentially have her dose increased from 50 to 75 mcg. Advised she become established with a primary care provider for ongoing management of her hypothyroidism and any other medical problems. She follows with Dr. Perry, cardiology regarding her blood pressure. Advised she let them know how her blood pressure is running to see if they would like to give her any medications or have her follow-up in the office. She is not interested in beginning any hypertensive medications at this time currently. Patient discharged home in stable condition. Case discussed with ED attending Dr. Mercedes. Return precautions reviewed in depth, the patient is instructed to return to the emergency department with any new, worsening, or concerning symptoms. Patient verbalized understanding. Undiagnosed new problem with uncertain prognosis? @ -None Drug Therapy requiring intensive monitoring for toxicity (Heparin, Nitro, Insulin, Cardizem)? @ -None Were any procedures done? @ -None Diagnosis/symptom? @ -Hypothyroidism, hypertension Acute, or Chronic, or Acute on Chronic? @ -Chronic Uncomplicated (without systemic symptoms) or Complicated (systemic symptoms)? @ -Complicated Side effects of treatment? @ -None Exacerbation, Progression, or Severe Exacerbation] @ -Mild progression Poses a threat to life or bodily function? @ -Unlikely - Lab Data Result diagrams: 01/28/24 12:19 01/28/24 12:19 Lab Results 01/28/24 01/28/24 01/28/24 Range/Units 12:19 12:19 12:19 WBC 8.9 (3.8-10.6) k/uL RBC 4.55 (3.80-5.40) m/uL Hgb 14.0 (11.4-16.0) gm/dL Hct 41.3 (34.0-46.0) % MCV 90.9 (80.0-100.0) fL MCH 30.8 (25.0-35.0) pg MCHC 33.9 (31.0-37.0) g/dL RDW 12.4 (11.5-15.5) % Plt Count 243 (150-450) k/uL MPV 9.3 Neutrophils % 66 % Lymphocytes % 25 % Monocytes % 5 % Eosinophils % 2 % Basophils % 1 % Neutrophils # 5.8 (1.3-7.7) k/uL Lymphocytes # 2.2 (1.0-4.8) k/uL Monocytes # 0.5 (0-1.0) k/uL Eosinophils # 0.2 (0-0.7) k/uL Basophils # 0.1 (0-0.2) k/uL PT 10.6 (10.0-12.5) sec INR 1.0 (<1.2) APTT 26.2 (22.0-30.0) sec Sodium 140 (137-145) mmol/L Potassium 4.1 (3.5-5.1) mmol/L Chloride 106 (98-107) mmol/L Carbon Dioxide 25 (22-30) mmol/L Anion Gap 9 mmol/L BUN 14 (7-17) mg/dL Creatinine 0.92 (0.52-1.04) mg/dL Est GFR (CKD-EPI)AfAm >90 (>60 ml/min/1.73 sqM) Est GFR (CKD-EPI)NonAf 84 (>60 ml/min/1.73 sqM) Glucose 86 (74-99) mg/dL Calcium 9.5 (8.4-10.2) mg/dL Magnesium 2.0 (1.6-2.3) mg/dL Total Bilirubin 0.8 (0.2-1.3) mg/dL AST 28 (14-36) U/L ALT 38 H (4-34) U/L Alkaline Phosphatase 59 (38-126) U/L Total Protein 7.8 (6.3-8.2) g/dL Albumin 4.6 (3.5-5.0) g/dL TSH 11.600 H (0.465-4.680) mIU/L Free T4 0.89 (0.78-2.19) ng/dL Urine Color Urine Appearance (Clear) Urine pH (5.0-8.0) Ur Specific [place] (1.001-1.035) Urine Protein (Negative) Urine Glucose (UA) (Negative) Urine Ketones (Negative) Urine Blood (Negative) Urine Nitrite (Negative) Urine Bilirubin (Negative) Urine Urobilinogen (<2.0) mg/dL Ur Leukocyte Esterase (Negative) Urine RBC (0-5) /hpf Urine WBC (0-5) /hpf Ur Squamous Epith Cells (0-4) /hpf Hyaline Casts (0-2) /lpf Urine Mucus (None) /hpf Urine HCG, Qual (Not Detectd) 01/28/24 01/28/24 Range/Units 12:19 12:19 WBC (3.8-10.6) k/uL RBC (3.80-5.40) m/uL Hgb (11.4-16.0) gm/dL Hct (34.0-46.0) % MCV (80.0-100.0) fL MCH (25.0-35.0) pg MCHC (31.0-37.0) g/dL RDW (11.5-15.5) % Plt Count (150-450) k/uL MPV Neutrophils % % Lymphocytes % % Monocytes % % Eosinophils % % Basophils % % Neutrophils # (1.3-7.7) k/uL Lymphocytes # (1.0-4.8) k/uL Monocytes # (0-1.0) k/uL Eosinophils # (0-0.7) k/uL Basophils # (0-0.2) k/uL PT (10.0-12.5) sec INR (<1.2) APTT (22.0-30.0) sec Sodium (137-145) mmol/L Potassium (3.5-5.1) mmol/L Chloride (98-107) mmol/L Carbon Dioxide (22-30) mmol/L Anion Gap mmol/L BUN (7-17) mg/dL Creatinine (0.52-1.04) mg/dL Est GFR (CKD-EPI)AfAm (>60 ml/min/1.73 sqM) Est GFR (CKD-EPI)NonAf (>60 ml/min/1.73 sqM) Glucose (74-99) mg/dL Calcium (8.4-10.2) mg/dL Magnesium (1.6-2.3) mg/dL Total Bilirubin (0.2-1.3) mg/dL AST (14-36) U/L ALT (4-34) U/L Alkaline Phosphatase (38-126) U/L Total Protein (6.3-8.2) g/dL Albumin (3.5-5.0) g/dL TSH (0.465-4.680) mIU/L Free T4 (0.78-2.19) ng/dL Urine Color Colorless Urine Appearance Clear (Clear) Urine pH 6.0 (5.0-8.0) Ur Specific [place] 1.010 (1.001-1.035) Urine Protein Negative (Negative) Urine Glucose (UA) Negative (Negative) Urine Ketones Negative (Negative) Urine Blood Negative (Negative) Urine Nitrite Negative (Negative) Urine Bilirubin Negative (Negative) Urine Urobilinogen <2.0 (<2.0) mg/dL Ur Leukocyte Esterase Trace H (Negative) Urine RBC 1 (0-5) /hpf Urine WBC 1 (0-5) /hpf Ur Squamous Epith Cells 2 (0-4) /hpf Hyaline Casts 1 (0-2) /lpf Urine Mucus Rare H (None) /hpf Urine HCG, Qual Not Detected (Not Detectd) Disposition Clinical Impression: Hypothyroidism, Hypertension Disposition: HOME SELF-CARE Instructions (If sedation given, give patient instructions): Hypothyroidism (ED) Additional Instructions: Return to the emergency department with any new, worsening, or concerning symptoms. Increase your levothyroxine dose to the new 75 mcg. Become established with a primary care provider to continue monitoring your thyroid levels. Continue to monitor your blood pressure at home. Follow-up with Dr. Perry regarding your blood pressure. Is patient prescribed a controlled substance at d/c from ED?: No Referrals: None,Stated [Primary Care Provider] - 1-2 days Forms: Area PCPs Time of Disposition: 14:59
[2024-01-28 12:40] LABS: Basophils # (A) 0.1 k/uL (0-0.2); Basophils % (A) 1 %; Eosinophils # (A) 0.2 k/uL (0-0.7); Eosinophils % (A) 2 %; HCT 41.3 % (34.0-46.0); Lymphocytes # (A) 2.2 k/uL (1.0-4.8); Lymphocytes % (A) 25 %; MCH 30.8 pg (25.0-35.0); MCHC 33.9 g/dL (31.0-37.0); MCV 90.9 fL (80.0-100.0); Mean Platelet Volume 9.3; Monocytes # (A) 0.5 k/uL (0-1.0); Monocytes % (A) 5 %; Neutrophils # (A) 5.8 k/uL (1.3-7.7); Neutrophils % (A) 66 %; Platelet Count 243 k/uL (150-450); RBC 4.55 m/uL (3.80-5.40); RDW 12.4 % (11.5-15.5); WBC 8.9 k/uL (3.8-10.6)
[2024-01-28 12:51] LABS: Partial Thromboplastin Time 26.2 sec (22.0-30.0); Prothrombin Time 10.6 sec (10.0-12.5)
[2024-01-28 12:56] LABS: ALT 38 U/L (4-34); AST 28 U/L (14-36); African American GFR (CKD) >90 (>60 ml/min/1.73 sqM); Albumin 4.6 g/dL (3.5-5.0); Alkaline Phosphatase 59 U/L (38-126); Anion Gap 9 mmol/L; Blood Urea Nitrogen 14 mg/dL (7-17); Calcium 9.5 mg/dL (8.4-10.2); Carbon Dioxide 25 mmol/L (22-30); Chloride 106 mmol/L (98-107); Glucose 86 mg/dL (74-99); Non-African American GFR(CKD) 84 (>60 ml/min/1.73 sqM); Potassium 4.1 mmol/L (3.5-5.1); Sodium 140 mmol/L (137-145); Total Bilirubin 0.8 mg/dL (0.2-1.3); Total Protein 7.8 g/dL (6.3-8.2)
[2024-01-28 14:23] LABS: T4, Free (Free Thyroxine) 0.89 ng/dL (0.78-2.19)
[2024-01-28 14:49] LABS: Appearance,Urine Clear (Clear); Bilirubin,Urine Negative (Negative); Blood,Urine Negative (Negative); Color,Urine Colorless; Glucose,Urine (UA) Negative (Negative); Hyaline Casts,Urine 1 /lpf (0-2); Ketones,Urine Negative (Negative); Leukocyte Esterase,Urine Trace (Negative); Mucus,Urine Rare /hpf; Nitrite,Urine Negative (Negative); Protein,Urine Negative (Negative); RBC,Urine 1 /hpf (0-5); Squamous Epithelial Cell,Urine 2 /hpf (0-4); Urobilinogen,Urine <2.0 mg/dL (<2.0); WBC,Urine 1 /hpf (0-5)
[2024-01-28 15:59] VITALS: BP 144/90; PULSE 79; RESP 16
== END 2024-01-28 15:59 | disposition home or self-care (01) ==
LOC: EC 10:59
DX: I10 Essential (primary) hypertension (principal); E03.9 Hypothyroidism, unspecified; Z79.899 Other long term (current) drug therapy; Z91.012 Allergy to eggs
CPT/HCPCS: 36415; 80053; 81001; 81025; 83735; 84439; 84443; 85025; 85610; 85730; 93005; 99284

== ENCOUNTER 2024-04-24 08:56 | Emergency (ER) | payer OTHER ==
[2024-04-24 09:00] VITALS: TEMP 98.3
[2024-04-24 10:01] LABS: Basophils % (A) 1 %; Eosinophils # (A) 0.1 k/uL (0-0.7); Eosinophils % (A) 2 %; HCT 46.5 % (34.0-46.0); HGB 15.5 gm/dL (11.4-16.0); Lymphocytes # (A) 1.6 k/uL (1.0-4.8); Lymphocytes % (A) 22 %; MCH 30.6 pg (25.0-35.0); MCHC 33.3 g/dL (31.0-37.0); MCV 91.9 fL (80.0-100.0); Mean Platelet Volume 8.5; Monocytes # (A) 0.4 k/uL (0-1.0); Monocytes % (A) 5 %; Neutrophils % (A) 69 %; Platelet Count 228 k/uL (150-450); RBC 5.06 m/uL (3.80-5.40); RDW 12.1 % (11.5-15.5); WBC 7.2 k/uL (3.8-10.6)
[2024-04-24 10:35] LABS: ALT 44 U/L (4-34); African American GFR (CKD) >90 (>60 ml/min/1.73 sqM); Albumin 4.6 g/dL (3.5-5.0); Anion Gap 6 mmol/L; Blood Urea Nitrogen 14 mg/dL (7-17); Calcium 9.3 mg/dL (8.4-10.2); Carbon Dioxide 25 mmol/L (22-30); Chloride 108 mmol/L (98-107); Glucose 87 mg/dL (74-99); Non-African American GFR(CKD) >90 (>60 ml/min/1.73 sqM); Sodium 139 mmol/L (137-145); Total Bilirubin 1.2 mg/dL (0.2-1.3); Total Protein 8.1 g/dL (6.3-8.2)
[2024-04-24 10:46] LABS: AST 31 U/L (14-36)
[2024-04-24 10:47] LABS: Alkaline Phosphatase 57 U/L (38-126)
[2024-04-24 11:09] VITALS: RESP 18
[2024-04-24 11:16] LABS: HCG,Quantitative Serum <2.4 mIU/mL
--- NOTE | 2024-04-24 12:24 | ED ---
Recheck HPI - General Chief Complaint: Recheck/Abnormal Lab/Rx Stated Complaint: Hypertension Time Seen by Provider: 04/24/24 09:02 Source: patient, RN notes reviewed Mode of arrival: ambulatory Limitations: no limitations - History of Present Illness Initial Comments: 34-year-old female presents emergency department complaint hypertension. Patient states that her blood pressures have she states she does not feel well at this time states that she has had a headache. Patient states that she has had issues with her thyroid causing this in the past. Patient states she is unsure if she took her dose yesterday did not take it this morning. She also states that she may be . Patient denies any vaginal bleeding or abdominal pain. - Related Data Home Medications Medication Instructions Recorded Confirmed Montelukast [Singulair] 10 mg PO HS 03/15/22 04/24/24 Budesonide/Formoterol Fumarate 2 puff INHALATION RT-BID PRN 05/31/22 04/24/24 [Symbicort 80-4.5 Mcg Inhaler] Fexofenadine HCl [Robyn Allergy] 180 mg PO HS 05/31/22 04/24/24 Etonogestrel/Ethinyl Estradiol 1 vag ring VAGINAL Q21D 04/24/24 04/24/24 [Eluryng Vaginal Ring] Levothyroxine Sodium [Synthroid] 75 mcg PO DAILY 04/24/24 04/24/24 Allergies Allergy/AdvReac Type Severity Reaction Status Date / Time egg Allergy SEE COMMENT Verified 04/24/24 11:21 Review of Systems ROS Statement: Those systems with pertinent positive or pertinent negative responses have been documented in the HPI. ROS Other: All systems not noted in ROS Statement are negative. Past Medical History Past Medical History: Asthma, Hypertension, Thyroid Disorder Additional Past Medical History / Comment(s): Heart murmur. History of Any Multi-Drug Resistant Organisms: None Reported Additional Past Surgical History / Comment(s): 12/31/15 Past Anesthesia/Blood Transfusion Reactions: No Reported Reaction Past Psychological History: Anxiety Smoking Status: Never smoker Past Alcohol Use History: None Reported Past Drug Use History: Marijuana General Exam Limitations: no limitations General appearance: alert, in no apparent distress Head exam: Present: atraumatic, normocephalic, normal inspection Eye exam: Present: normal appearance, PERRL, EOMI. Absent: scleral icterus, conjunctival injection, periorbital swelling ENT exam: Present: normal exam, mucous membranes moist Neck exam: Present: normal inspection, full ROM. Absent: tenderness, meningismus, lymphadenopathy Respiratory exam: Present: normal lung sounds bilaterally. Absent: respiratory distress, wheezes, rales, rhonchi, stridor Cardiovascular Exam: Present: regular rate, normal rhythm, normal heart sounds. Absent: systolic murmur, diastolic murmur, rubs, gallop, clicks GI/Abdominal exam: Present: soft, normal bowel sounds. Absent: distended, tenderness, guarding, rebound, rigid Neurological exam: Present: alert, oriented X3, CN II-XII intact, reflexes normal. Absent: motor sensory deficit Course Vital Signs 04/24/24 04/24/24 04/24/24 08:56 09:32 09:36 Temperature 98.3 F Pulse Rate 77 56 L Pulse Rate [ 68 Shipping And Receiving Coordinator ] Respiratory 16 18 Rate Blood Pressure 156/112 O2 Sat by Pulse 99 98 Oximetry 04/24/24 04/24/24 04/24/24 10:00 11:00 13:20 Temperature 98.3 F Pulse Rate 59 L 56 L 75 Pulse Rate [ Shipping And Receiving Coordinator ] Respiratory 18 18 18 Rate Blood Pressure 159/101 152/88 151/97 O2 Sat by Pulse 99 98 99 Oximetry Medical Decision Making - Medical Decision Making Was pt. sent in by a medical professional or institution (, PA, PRODUCTION MANUFACTURING WORKER, urgent care, hospital, or detention...) When possible be specific @ -No Did you speak to anyone other than the patient for history (EMS, parent, family, police, friend...)? What history was obtained from this source @ -No Did you review nursing and triage notes (agree or disagree)? Why? @ -I reviewed and agree with nursing and triage notes Were old charts reviewed (outside hosp., previous admission, EMS record, old EKG, old radiological studies, urgent care reports/EKG's, detention records)? Report findings @ -No old charts were reviewed Differential Diagnosis (chest pain, altered mental status, abdominal pain women, abdominal pain men, vaginal bleeding, weakness, fever, dyspnea, syncope, headache, dizziness, GI bleed, back pain, seizure, CVA, palpatations, mental health, musculoskeletal)? @ -Differential Palpitations Ventricular arrhythmias, atrial arrhythmias, myocardial infarction, anemia, thyrotoxicosis, electrolyte imbalance, hypokalemia, pulmonary embolism, pulmonary disease, drugs, alcohol, anxiety, stress.... This is not meant to be an all-inclusive list. EKG interpreted by me (3pts min.). @ -As above X-rays interpreted by me (1pt min.). @ -None done CT interpreted by me (1pt min.). @ -None done U/S interpreted by me (1pt. min.). @ -None done What testing was considered but not performed or refused? (CT, X-rays, U/S, labs)? Why? @ -None What meds were considered but not given or refused? Why? @ -None Did you discuss the management of the patient with other professionals (professionals i.e. , PA, PRODUCTION MANUFACTURING WORKER, lab, RT, psych nurse, social media developer, glaze sprayer, teacher, space officer, rn case manager hospice)? Give summary @ -No Was smoking cessation discussed for >3mins.? @ -No Was critical care preformed (if so, how long)? @ -No Were there social determinants of health that impacted care today? How? (Homel essness, low income, unemployed, alcoholism, drug addiction, transportation, low edu. Level, literacy, decrease access to med. care, senior living, rehab)? @ -No Was there de-escalation of care discussed even if they declined (Discuss DNR or withdrawal of care, Hospice)? DNR status @ -No What co-morbidities impacted this encounter? (DM, HTN, Smoking, COPD, CAD, Cancer, CVA, ARF, Chemo, Hep., AIDS, mental health diagnosis, sleep apnea, morbid obesity)? @ -Hypothyroidism Was patient admitted / discharged? Hospital course, mention meds given and route, prescriptions, significant lab abnormalities, going to OR and other pertinent info. @ -Discharged patient feels greatly improved blood pressures improved patient's laboratory studies unremarkable. Patient will follow-up PCP return for as discussed. Undiagnosed new problem with uncertain prognosis? @ -No Drug Therapy requiring intensive monitoring for toxicity (Heparin, Nitro, Insulin, Cardizem)? @ -No Were any procedures done? @ -No Diagnosis/symptom? @ -Hypertension hypothyroidism Acute, or Chronic, or Acute on Chronic? @ -Acute Uncomplicated (without systemic symptoms) or Complicated (systemic symptoms)? @ -Uncomplicated Side effects of treatment? @ -No Exacerbation, Progression, or Severe Exacerbation? @ -No Poses a threat to life or bodily function? How? (Chest pain, USA, [place], pneumonia, PE, COPD, DKA, ARF, appy, cholecystitis, CVA, Diverticulitis, Homicidal, Suicidal, threat to staff... and all critical care pts) @ -No - Lab Data Result diagrams: 04/24/24 09:34 04/24/24 09:34 Lab Results 04/24/24 04/24/24 Range/Units 09:34 09:34 WBC 7.2 (3.8-10.6) k/uL RBC 5.06 (3.80-5.40) m/uL Hgb 15.5 (11.4-16.0) gm/dL Hct 46.5 H (34.0-46.0) % MCV 91.9 (80.0-100.0) fL MCH 30.6 (25.0-35.0) pg MCHC 33.3 (31.0-37.0) g/dL RDW 12.1 (11.5-15.5) % Plt Count 228 (150-450) k/uL MPV 8.5 Neutrophils % 69 % Lymphocytes % 22 % Monocytes % 5 % Eosinophils % 2 % Basophils % 1 % Neutrophils # 5.0 (1.3-7.7) k/uL Lymphocytes # 1.6 (1.0-4.8) k/uL Monocytes # 0.4 (0-1.0) k/uL Eosinophils # 0.1 (0-0.7) k/uL Basophils # 0.0 (0-0.2) k/uL Sodium 139 (137-145) mmol/L Potassium 4.0 (3.5-5.1) mmol/L Chloride 108 H (98-107) mmol/L Carbon Dioxide 25 (22-30) mmol/L Anion Gap 6 mmol/L BUN 14 (7-17) mg/dL Creatinine 0.83 (0.52-1.04) mg/dL Est GFR (CKD-EPI)AfAm >90 (>60 ml/min/1.73 sqM) Est GFR (CKD-EPI)NonAf >90 (>60 ml/min/1.73 sqM) Glucose 87 (74-99) mg/dL Calcium 9.3 (8.4-10.2) mg/dL Total Bilirubin 1.2 (0.2-1.3) mg/dL AST 31 (14-36) U/L ALT 44 H (4-34) U/L Alkaline Phosphatase 57 (38-126) U/L Total Protein 8.1 (6.3-8.2) g/dL Albumin 4.6 (3.5-5.0) g/dL TSH 3.670 (0.465-4.680) mIU/L Free T4 1.12 (0.78-2.19) ng/dL HCG, Quant <2.4 mIU/mL - EKG Data -: EKG Interpreted by Me EKG Comments: EKG performed at 9: 34 sinus bradycardia with a rate of 57 ID 170 QRS 70 QT/QTc 413/408 Disposition Clinical Impression: Hypertension Disposition: HOME SELF-CARE Condition: Stable Instructions (If sedation given, give patient instructions): Hypertension (ED) Additional Instructions: Please return to the Emergency Department if symptoms worsen or any other concerns. Is patient prescribed a controlled substance at d/c from ED?: No Referrals: None,Stated [Primary Care Provider] - 1-2 days Time of Disposition: 13:21
[2024-04-24 12:31] LABS: T4, Free (Free Thyroxine) 1.12 ng/dL (0.78-2.19)
[2024-04-24 13:21] VITALS: BP 151/97; PULSE 75
== END 2024-04-24 13:40 | disposition home or self-care (01) ==
LOC: EC 08:56
DX: I10 Essential (primary) hypertension (principal); E03.9 Hypothyroidism, unspecified; R00.1 Bradycardia, unspecified; Z91.012 Allergy to eggs
CPT/HCPCS: 36415; 80053; 84439; 84443; 84481; 84702; 85025; 93005; 99284

== ENCOUNTER → 2024-06-10 | Outpatient (CLI) | payer OTHER ==
--- NOTE | 2024-06-10 16:55 | CT ---
EXAMINATION TYPE: CT sinus wo con DATE OF EXAM: 06/10/2024 1:44 PM COMPARISON: None. CLINICAL INDICATION: Female, 34 years old with history of J32.0 CHRONIC SINUSITIS, pre-op septoplasty TECHNIQUE: The paranasal sinuses are examined in the axial plane at 2 mm thick sections. Reconstruct ed images in the coronal plane were obtained. Contrast used: mL of , (none if empty) Oral contrast used: (none if empty) CT DLP: 419 mGycm, Automated exposure control for dose reduction was used. FINDINGS: There is dental amalgam scatter artifact There is a large retention cyst within the right maxillary sinus. Some minimal mucosal thickening is along the inferior medial left maxillary wall. The ethmoid air cells are clear. The sphenoid sinuse s are clear. The frontal sinuses are clear. The septum is evaluated. There is septal deviation to the right. The ostiomeatal units are patent. IMPRESSION: 1. Retention cyst within the right maxillary sinus. 2. Right septal deviation [facility], Workstation: [facility], 06/10/2024 4:52 PM
== END | disposition home or self-care (01) ==
LOC: RADCTMAIN 13:15
PROVIDERS: ATTEND Otolaryngology
DX: J32.0 Chronic maxillary sinusitis (principal); J34.2 Deviated nasal septum; J34.1 Cyst and mucocele of nose and nasal sinus
CPT/HCPCS: 70486